=== PATIENT | male | born 1935 | race Caucasian/White ===

== ENCOUNTER → 2017-03-10 | Outpatient (CLI) | payer MEDICARE, OTHER, SELFPAY | PROVIDERS: Visit Provider Family Medicine | DX: M86.172 Other acute osteomyelitis, left ankle and foot (principal); Z89.422 Acquired absence of other left toe(s); Z51.81 Encounter for therapeutic drug level monitoring | CPT/HCPCS: 80202 ==

== ENCOUNTER → 2017-03-11 | Outpatient (CLI) | payer MEDICARE, OTHER, SELFPAY | PROVIDERS: Visit Provider Family Medicine | DX: M86.172 Other acute osteomyelitis, left ankle and foot (principal); Z89.422 Acquired absence of other left toe(s); Z51.81 Encounter for therapeutic drug level monitoring | CPT/HCPCS: 80202 ==

== ENCOUNTER → 2017-03-14 | Outpatient (CLI) | payer MEDICARE, OTHER, SELFPAY | PROVIDERS: Visit Provider Family Medicine | DX: M86.172 Other acute osteomyelitis, left ankle and foot (principal); Z89.422 Acquired absence of other left toe(s); Z51.81 Encounter for therapeutic drug level monitoring | CPT/HCPCS: 80202 ==

== ENCOUNTER → 2017-03-19 | Outpatient (CLI) | payer MEDICARE, OTHER, SELFPAY | PROVIDERS: PCP Family Medicine; Visit Provider Family Medicine | DX: M86.172 Other acute osteomyelitis, left ankle and foot (principal); Z89.422 Acquired absence of other left toe(s); Z51.81 Encounter for therapeutic drug level monitoring | CPT/HCPCS: 80048; 80202 ==

== ENCOUNTER → 2017-03-20 | Outpatient (CLI) | payer MEDICARE, OTHER, SELFPAY | PROVIDERS: PCP Family Medicine; Visit Provider Family Medicine | DX: M86.172 Other acute osteomyelitis, left ankle and foot (principal); Z89.422 Acquired absence of other left toe(s); Z51.81 Encounter for therapeutic drug level monitoring | CPT/HCPCS: 80202 ==

== ENCOUNTER → 2017-03-23 | Outpatient (CLI) | payer MEDICARE, OTHER, SELFPAY | PROVIDERS: PCP Family Medicine; Visit Provider Family Medicine | DX: M86.172 Other acute osteomyelitis, left ankle and foot (principal); Z89.422 Acquired absence of other left toe(s); Z51.81 Encounter for therapeutic drug level monitoring | CPT/HCPCS: 80202 ==

== ENCOUNTER 2017-03-29 11:26 | Outpatient (POV) | payer MEDICARE, OTHER, SELFPAY | END 2017-03-29 15:20 | disposition home or self-care (01) | PROVIDERS: PCP Podiatrist; Visit Provider Podiatrist | DX: Z98.890 Other specified postprocedural states (principal) | CPT/HCPCS: 99024 ==

== ENCOUNTER 2017-04-14 13:19 | Outpatient (POV) | payer MEDICARE, OTHER, SELFPAY | END 2017-04-14 16:49 | disposition home or self-care (01) | PROVIDERS: Visit Provider Podiatrist | DX: Z98.890 Other specified postprocedural states (principal) | CPT/HCPCS: 99024 ==

== ENCOUNTER → 2017-05-25 13:20 | Outpatient (CLI) | payer MEDICARE, OTHER, MEDICAID, SELFPAY ==
--- NOTE | 2017-05-25 | XR_ITS ---
XR foot RT min 3V HISTORY: 8 pain, diabetic ORDERING PHYSICIAN: Estella Alonso DPM PATIENT AGE: 82 years COMPARISON: None FINDINGS: There is extensive bandage artifact obscuring fine detail of the third, fourth, and fifth toes. Flexion deformity involves the fourth through fifth toes. There is some deformity involving the proximal phalanx of the toe and could be related to old fracture. No obvious bony lytic changes however, subtle erosive changes may not be seen due to the artifact. IMPRESSION: Hammertoe deformity fourth through fifth toes with bandage artifact.
--- NOTE | 2017-05-25 | XR_ITS ---
XR foot LT min 3V HISTORY: Foot pain, follow-up amputation ORDERING PHYSICIAN: Estella Alonso DPM PATIENT AGE: 82 years COMPARISON: 03/03/2017 FINDINGS: Status post transmetatarsal amputation at the base of the metatarsals not significant change compared to the previous study. No underlying erosive process evident. There is overlying bandage artifact. IMPRESSION: No change status post proximal metatarsal amputation
== END ==
PROVIDERS: PCP Family Medicine; Visit Provider Podiatrist
DX: E11.621 Type 2 diabetes mellitus with foot ulcer (principal)
CPT/HCPCS: 73630; 87070; 87077; 87186; 87205

== ENCOUNTER 2017-05-30 10:58 | Inpatient (IN) | payer MEDICARE, OTHER, MEDICAID, SELFPAY ==
[2017-05-30 11:02] VITALS: BP 123/67; PULSE 77; RESP 18; TEMP 36.7; O2SAT 95; BMI 21.5
--- NOTE | 2017-05-30 11:22 | HMH.EDWNDL ---
ED Disposition Clinical Impression: Cellulitis of foot, right, Gangrene associated with type 2 diabetes mellitus Disposition: Admitted As Inpatient Condition on Discharge: Good Instructions: DI for Laceration Repair Referrals: Lopez Goss MD [Primary Care Provider] - - Critical Care Critical Care Time: No Attestation: On , the high probability of a clinically significant, sudden or life threatening deterioration of the following system(s) required my full and direct attention, intervention and personal management. The time I documented below is in addition to time spent performing reported procedures but includes the following listed in this critical care notation. Medical Decision Making - Medical Records Medical records reviewed: Yes: I reviewed the patient's medical records. Vital Signs: 05/30/17 11:02 05/30/17 12:18 05/30/17 13:14 Temperature 98.1 F Temperature Source Temporal Artery Scan Pulse Rate [Left Brachial] 77 74 74 Respiratory Rate 18 18 18 Blood Pressure [Left Arm] 123/67 124/63 127/58 Blood Pressure Mean [Left Arm] 85 83 81 Blood Pressure Source [Left Arm] Automatic Cuff Automatic Cuff Automatic Cuff Blood Pressure Position [Left Arm] Supine Supine Sitting 02 Sat by Pulse Oximetry 95 98 97 Oxygen Delivery Method Room Air Room Air Room Air - Lab Data Lab results reviewed: Yes: I reviewed the patient's lab results. Lab Results 05/30/17 11:15: WBC 15.2 H, RBC 4.04 L, Hgb 11.7 L, Hct 37.6 L, MCV 93.1, MCH 29.0, MCHC 31.1 L, RDW 13.5, Plt Count 614 H, MPV 7.6, Neut % (Auto) 79.8, Lymph % (Auto) 11.2, [place] % (Auto) 3.6, Eos % (Auto) 4.9, Baso % (Auto) 0.5, Neut # (Auto) 12.1 H, Lymph # (Auto) 1.7, [place] # (Auto) 0.5, Eos # (Auto) 0.8 H, Baso # (Auto) 0.1, Total Counted 100, Neutrophils % (Manual) 77 H, Lymphocytes % (Manual) 11, Monocytes % (Manual) 7, Eosinophils % (Manual) 5 H, Platelet Estimate Marked increase, RBC Morphology Normal 05/30/17 11:15: Sodium 143, Potassium 4.9, Chloride 106, Carbon Dioxide 29, Anion Gap 12.9, BUN 24 H, Creatinine 1.11, Estimated Creat Clear 50, Estimated GFR 64, Est GFR ( Amer) 77, Glucose 207 H, Calcium 9.2, Total Bilirubin 0.2, AST 25, ALT 26, Alkaline Phosphatase 133 H, Total Protein 7.6, Albumin 2.5 L, Globulin 5.1 H, Albumin/Globulin Ratio 0.5 L 05/30/17 11:15: Lactic Acid 1.2 Result diagrams: 05/30/17 11:15 05/30/17 11:15 Orders (Tests/Meds): ED MEDICATIONS Generic Name Dose Route Start Last Admin Trade Name Freq PRN Reason Stop Dose Admin Vancomycin HCl 1,250 mg/ 250 mls @ 125 mls/hr 05/30/17 13:15 Sodium Chloride IV 05/30/17 15:14 ONCE ONE Miscellaneous 1 each 05/30/17 13:15 Vancomycin Consult Request NOTAPPLIC 06/29/17 13:14 CONSULT PHARMACY СВЕТЛАНА ORDERS Category Date Time Status CXR --portable [XR chest portable] Stat Exams 05/30/17 11:51 Taken Blood Culture Stat Micro 05/30/17 11:15 Received - Physician Consults Physician Consulted: pedro Reason -: Admission Additional Consult: treasure Reason -: Pt condition Additional Consult: karissa Reason -: Pt condition - Phill Inquiry Pt receiving controlled substance: No Wound/Laceration HPI - General Chief Complaint: Wound/Laceration Stated Complaint: INFECTION Time Seen by Provider: 05/30/17 11:22 Mode of Arrival: EMS Source of Information: Patient, EMS, Medical Record Limitations: No Limitations Description of Symptoms (Recalled from ER Triage Doc. by RN): PT HAS RIGHT FOOT POSSIBLE INFECTION. PER RN AT CARE HOME PT'S RIGHT GREAT TOE AND PINKY TOE ARE BLACK AND DRAINING WHITE DRAINAGE. FOLLOWING PATIENT AND STARTED PATIENT ON INVANZ ON 05/28/17. - History of Present Illness HPI narrative: pt with diabetes and has infected rt foot - has been seen by dr amanda and on op abx iv Onset (ago): day(s) Extremity Location: Right: foot Context: other Treatments prior to arrival: other (iv abx) - Related Data Home
--- NOTE | 2017-05-30 11:25 | ED_ITS ---
ED Disposition Clinical Impression: Cellulitis of foot, right, Gangrene associated with type 2 diabetes mellitus Disposition: Admitted As Inpatient Condition on Discharge: Good Instructions: DI for Laceration Repair Referrals: Lopez Goss MD [Primary Care Provider] - - Critical Care Critical Care Time: No Attestation: On , the high probability of a clinically significant, sudden or life threatening deterioration of the following system(s) required my full and direct attention, intervention and personal management. The time I documented below is in addition to time spent performing reported procedures but includes the following listed in this critical care notation. Medical Decision Making - Medical Records Medical records reviewed: Yes: I reviewed the patient's medical records. Vital Signs: 05/30/17 11:02 05/30/17 12:18 05/30/17 13:14 Temperature 98.1 F Temperature Source Temporal Artery Scan Pulse Rate [Left Brachial] 77 74 74 Respiratory Rate 18 18 18 Blood Pressure [Left Arm] 123/67 124/63 127/58 Blood Pressure Mean [Left Arm] 85 83 81 Blood Pressure Source [Left Arm] Automatic Cuff Automatic Cuff Automatic Cuff Blood Pressure Position [Left Arm] Supine Supine Sitting 02 Sat by Pulse Oximetry 95 98 97 Oxygen Delivery Method Room Air Room Air Room Air - Lab Data Lab results reviewed: Yes: I reviewed the patient's lab results. Lab Results 05/30/17 11:15: WBC 15.2 H, RBC 4.04 L, Hgb 11.7 L, Hct 37.6 L, MCV 93.1, MCH 29.0, MCHC 31.1 L, RDW 13.5, Plt Count 614 H, MPV 7.6, Neut % (Auto) 79.8, Lymph % (Auto) 11.2, [place] % (Auto) 3.6, Eos % (Auto) 4.9, Baso % (Auto) 0.5, Neut # (Auto) 12.1 H, Lymph # (Auto) 1.7, [place] # (Auto) 0.5, Eos # (Auto) 0.8 H , Baso # (Auto) 0.1, Total Counted 100, Neutrophils % (Manual) 77 H, Lymphocytes % (Manual) 11, Monocytes % (Manual) 7, Eosinophils % (Manual) 5 H, Platelet Estimate Marked increase, RBC Morphology Normal 05/30/17 11:15: Sodium 143, Potassium 4.9, Chloride 106, Carbon Dioxide 29, Anion Gap 12.9, BUN 24 H, Creatinine 1.11, Estimated Creat Clear 50, Estimated GFR 64, Est GFR ( Amer) 77, Glucose 207 H, Calcium 9.2, Total Bilirubin 0.2, AST 25, ALT 26, Alkaline Phosphatase 133 H, Total Protein 7.6, Albumin 2.5 L, Globulin 5.1 H, Albumin/Globulin Ratio 0.5 L 05/30/17 11:15: Lactic Acid 1.2 Result diagrams: 05/30/17 11:15 05/30/17 11:15 Orders (Tests/Meds): ED MEDICATIONS Generic Name Dose Route Start Last Admin Trade Name Freq PRN Reason Stop Dose Admin Vancomycin HCl 1,250 mg/ 250 mls @ 125 mls/hr 05/30/17 13:15 Sodium Chloride IV 05/30/17 15:14 ONCE ONE Miscellaneous 1 each 05/30/17 13:15 Vancomycin Consult Request NOTAPPLIC 06/29/17 13:14 CONSULT PHARMACY СВЕТЛАНА ORDERS Category Date Time Status CXR --portable [XR chest portable] Stat Exams 05/30/17 11:51 Taken Blood Culture Stat Micro 05/30/17 11:15 Received - Physician Consults Physician Consulted: pedro Reason -: Admission Additional Consult: treasure Reason -: Pt condition Additional Consult: karissa Reason -: Pt condition - Phill Inquiry Pt receiving controlled substance: No Wound/Laceration HPI - General Chief Complaint: Wound/Laceration Stated Complaint: INFECTION Time Seen by Provider: 05/30/17 11:22 Mode of Arrival: EMS Source of [employer]
[2017-05-30 11:37] LABS: Basophils # 0.1 K/mm3 (0-0.2); Basophils % 0.5 % (0.1-2.0); Eosinophils # 0.8 K/mm3 (0.0-0.4); Eosinophils % 4.9 % (0.1-12.0); Hematocrit 37.6 % (42.0-52.0); Hemoglobin 11.7 g/dL (14.1-18.0); Lymphocytes # 1.7 K/mm3 (0.7-4.5); Lymphocytes % 11.2 K/mm3 (10-50); Mean Corpuscular HGB Conc 31.1 g/dL (31.8-35.4); Mean Corpuscular Volume 93.1 fl (80-94); Mean Platelet Volume 7.6 fl (7.4-10.4); Monocytes # 0.5 K/mm3 (0.1-1.0); Monocytes % 3.6 % (1.7-9.3); Neutrophils # 12.1 K/mm3 (1.8-7.8); Neutrophils % 79.8 % (37.0-80.0); Platelet Count 614 K/mm3 (142-424); Red Blood Count 4.04 M/mm3 (4.60-6.20); Red Cell Distribution Width 13.5 % (11.5-17.5); White Blood Count 15.2 K/mm3 (4.8-10.8)
[2017-05-30 11:40] LABS: MANUAL DIFFERENTIAL MANUAL DIFFERENTIAL (MANUAL DIFF)
[2017-05-30 11:50] LABS: Alanine Aminotransferase 26 U/L (12-78); Albumin Level 2.5 gm/dL (3.4-5.0); Albumin/Globulin Ratio 0.5 (1.1-1.8); Alkaline Phosphatase 133 U/L (46-116); Anion Gap 12.9 mEq/L (5-15); Bilirubin,Total 0.2 mg/dL (0.2-1.0); Blood Urea Nitrogen 24 mg/dL (7-18); Calcium 9.2 mg/dL (8.5-10.1); Carbon Dioxide 29 mmol/L (21.0-32.0); Chloride 106 mmol/L (98-107); Creatinine Clearance Estimated 50 mL/min (0-300); Creatinine,Serum 1.11 mg/dL (0.70-1.30); Estimated Glomerular Filt Rate 64 ml/min (>60); GFR (African American) 77 ML/MIN (>60); Globulin 5.1 gm/dl (1.3-3.2); Glucose 207 mg/dL (74-106); Sodium 143 mmol/L (136-145); Total Protein,Serum 7.6 gm/dL (6.4-8.2)
--- NOTE | 2017-05-30 11:51 | XR_ITS ---
XR chest portable Ordering Physician: Alexi Calhoun MD Patient Age: 82 years: Male HISTORY: ITS.REASON: sob TECHNIQUE: AP portable upright chest COMPARISON :03/07/2017 FINDINGS . There is better inspiration today at the lung bases are better expanded and clear than on the previous portable chest film. Nothing definitely acute evident. Minimal density at the left CP angle has improved since previous studies from March 2017. The heart, walter and mediastinal structures satisfactory. Calcified aortic knob. Degenerative AC joint changes bilateral. IMPRESSION: Nothing definitely acute
[2017-05-30 11:52] LABS: Aspartate Amino Transferase 25 U/L (15-37); Lactic Acid 1.2 mmol/L (0.4-2.0); Potassium 4.9 mmoL/L (3.5-5.1)
--- NOTE | 2017-05-30 12:05 | PC.NURSE ---
1138- CALLED 'S OFFICE TO NOTIFY OF PATIENT ARRIVIAL TO THE ER FROM [facility].
[2017-05-30 12:18] VITALS: BP 124/63; PULSE 74; RESP 18; O2SAT 98
[2017-05-30 12:27] LABS: Eosinophils % 5 % (0-3); Lymphocytes % 11 % (10-50); Monocytes % 7 % (2-9); Neutrophils % 77 % (42-76); Platelet Estimate Marked Increase; Total Cells Counted 100
[2017-05-30 12:28] LABS: RBC Morphology Normal
--- NOTE | 2017-05-30 12:54 | HMH.ORTHOCON ---
*Admission Date: 05/30/17 *Chief complaint: Right 5th toe gangrene *History of present illness: Mr. Umanzor is a 82 y/o male who is in the ER today. He was last seen in my clinic Wedn 05/25/17 for follow up of left TMA site, wound care. Last week, he had new gangrenous changes to the right hallux, and right 5th toe with discoloration and malodor. No active drainage was appreciated. He was started on oral antibiotics however the preliminary cultures on Tuesday showed multiple drug resistance. So I changed him to Ertapenem 1g every 24. The wound culture from 05/25/17 still has not finalized but the lab did call today indicating that there are more in his organisms noted with multiple drug resistance. The right 5th toe is smells worse today and cellulitis noted. There is some pain with palpation. WBC elevated at 15.2. Patient is usually combative but he seems rather subdued today. Patient is post op left foot amputation. S/P left transmetatarsal amputation on 01/01/17. He is s/p left 4-5th ray resection, I&D, application of wound vac 12/29/16 for gas gangrene. Patient is also s/p stent LEFT SFA, popliteal by Dr. Maradiaga 12/30/16. 12/28/16: ROYER R 0.52, L 0.26 TBI R 0.28, L 0.27 Abnormal pulses and waveforms indicating severe bilateral arterial disease Review of Systems - Constitutional Reports anorexia, Denies chills, Denies fever(s) - Eyes Denies blurry vision, Denies change in vision - ENT Denies change in voice - *Cardiovascular Denies excessive sweating, Denies shortness of breath - *Respiratory Denies shortness of breath, Denies pain with cough - *Gastrointestinal Denies abdominal pain - *Genitourinary Denies genital pain - *Musculoskeletal Reports decreased muscle mass, Reports muscle weakness - *Neurologic Reports behavioral changes, Reports tingling/numbness/burning sensations, Denies seizure-like activity - Endocrine Denies excessive sweating - Hematologic/Lymphatic Denies easy bleeding [facility] History I have reviewed the patient's past medical history: Yes Medical History: Reports:: Atrial Fibrillation, Deep Vein Thrombosis, Dementia, Diabetes Mellitus Type 2, Transient Ischemic Attacks (TIA) Laterality Cases: Left: Other Other Surgeries: Yes: Other (TMA Left Foot) Amputation: Yes (01/01/17 left TMA) Fractures: No - *Social History Smoking Status: Former smoker Tobacco Type: cigarettes # Packs/Day (cigarettes): 0 #Yrs smoked (if former smoker): 20 Alcohol Intake: never Alcohol Intake Frequency:: 0-2 drinks per day Substance Use Type: denies use Occupational Status: retired Housing: detention - Psychiatric History Expresses thoughts of harming self/others: None Suicide Plan Description: No Plan *Family Hx:: Unable to obtain Meds Home Medications Medication Instructions Recorded Confirmed Type atorvastatin 40 mg tablet 40 mg PO QDAY 30 Days #30 tab 05/18/17 History clopidogrel 75 mg tablet 75 mg PO QDAY 30 Days #30 tab 05/18/17 History collagenase clostridium TOPICAL 15 Days #30 05/18/17 History histolyticum 250 unit/gram topical ointment diltiazem CD 240 mg PO 30 Days #30 05/18/17 History capsule,extended release 24 hr insulin glargine 100 unit/mL (3 SUB-Q 8 Days #3 05/18/17 History mL) subcutaneous pen insulin lispro 100 unit/mL SUB-Q 15 Days #3 05/18/17 History subcutaneous pen metoprolol succinate ER 25 mg PO 30 Days #30 05/18/17 History tablet,extended release 24 hr risperidone 1 mg tablet 1 mg PO .PRN 30 Days tab 05/18/17 History rivaroxaban 15 mg tablet 15 mg PO QDAY 30 Days #30 tab 05/18/17 History sitagliptin 50 mg-metformin ER PO 30 Days #30 05/18/17 History 1,000 mg tablet,extended release 24h mp Allergies Allergy/AdvReac Type Severity Reaction Status Date / Time No Known Drug Allergies Allergy Unknown -- Unverified 05/25/17 12:51 [NKDA] Exam Vital signs and Labs for Last 24 Hours: Temp Pulse Resp BP Pulse Ox 9
--- NOTE | 2017-05-30 13:00 | P.CONS_ITS ---
*Admission Date: 05/30/17 *Chief complaint: Right 5th toe gangrene *History of present illness: Mr. Umanzor is a 82 y/o male who is in the ER today. He was last seen in my clinic Wedn 05/25/17 for follow up of left TMA site, wound care. Last week, he had new gangrenous changes to the right hallux, and right 5th toe with discoloration and malodor. No active drainage was appreciated. He was started on oral antibiotics however the preliminary cultures on Tuesday showed multiple drug resistance. So I changed him to Ertapenem 1g every 24. The wound culture from 05/25/17 still has not finalized but the lab did call today indicating that there are more in his organisms noted with multiple drug resistance. The right 5th toe is smells worse today and cellulitis noted. There is some pain with palpation. WBC elevated at 15.2. Patient is usually combative but he seems rather subdued today. Patient is post op left foot amputation. S/P left transmetatarsal amputation on 01/01/17. He is s/p left 4-5th ray resection, I&D, application of wound vac for gas gangrene. Patient is also s/p stent LEFT SFA, popliteal by Dr. Maradiaga 12/30/16. 12/28/16: ROYER R 0.52, L 0.26 TBI R 0.28, L 0.27 Abnormal pulses and waveforms indicating severe bilateral arterial disease Review of Systems - Constitutional Reports anorexia, Denies chills, Denies fever(s) - Eyes Denies blurry vision, Denies change in vision - ENT Denies change in voice - *Cardiovascular Denies excessive sweating, Denies shortness of breath - *Respiratory Denies shortness of breath, Denies pain with cough - *Gastrointestinal Denies abdominal pain - *Genitourinary Denies genital pain - *Musculoskeletal Reports decreased muscle mass, Reports muscle weakness - *Neurologic Reports behavioral changes, Reports tingling/numbness/burning sensations, Denies seizure-like activity - Endocrine Denies excessive sweating - Hematologic/Lymphatic Denies easy bleeding [facility] History I have reviewed the patient's past medical history: Yes Medical History: Reports:: Atrial Fibrillation, Deep Vein Thrombosis, Dementia, Diabetes Mellitus Type 2, Transient Ischemic Attacks (TIA) Laterality Cases: Left: Other Other Surgeries: Yes: Other (TMA Left Foot) Amputation: Yes (01/01/17 left TMA) Fractures: No - *Social History Smoking Status: Former smoker Tobacco Type: cigarettes # Packs/Day (cigarettes): 0 #Yrs smoked (if former smoker): 20 Alcohol Intake: never Alcohol Intake Frequency:: 0-2 drinks per day Substance Use Type: denies use Occupational Status: retired Housing: intermediate - Psychiatric History Expresses thoughts of harming self/others: None Suicide Plan Description: No Plan *Family Hx:: Unable to obtain Meds Home Medications Medication Instructions Recorded Confirmed Type atorvastatin 40 mg tablet 40 mg PO QDAY 30 Days #30 tab 05/18/17 History clopidogrel 75 mg tablet 75 mg PO QDAY 30 Days #30 tab 05/18/17 History collagenase clostridium TOPICAL 15 Days #30 05/18/17 History histolyticum 250 unit/gram topical ointment diltiazem CD 240 mg PO 30 Days #30 05/18/17 History capsule,extended release 24 hr insulin glargine 100 unit/mL (3 SUB-Q 8 Days #3 05/18/17 History mL) subcutaneous pen insulin lispro 100 unit/mL SUB-Q 15 Days #3 05/18/17 History subcutaneous pen metoprolol succinate ER 25 mg PO 30 Days #30 05/18/17 History tablet,extended release 24 hr risp
[2017-05-30 13:14] VITALS: BP 127/58; PULSE 74; RESP 18; O2SAT 97
--- NOTE | 2017-05-30 14:01 | HMH.CARDCON2 ---
History of Present Illness Consult date: 05/30/17 Requesting physician: Estella Alonso Chief complaint: Non-healing ulcer of right foot History of present illness: 82-year-old white male with previous peripheral arterial disease of the left leg status post percutaneous intervention in 2017 with resultant improvement in nonhealing ulcer of the left foot is being readmitted today for nonhealing ulcer of the right foot with cardiology consultation for evaluation of PAD of the right leg. Patient has a history of long-term, heavy smoking use discontinued last year, long-term diabetes and dementia. History obtained from family member. Review of Systems - *Cardiovascular Denies chest pain - *Neurologic Reports behavioral changes, Reports tingling/numbness/burning sensations, Denies seizure-like activity [facility] History Medical History: Reports:: Atrial Fibrillation, Deep Vein Thrombosis, Dementia, Diabetes Mellitus Type 2, Transient Ischemic Attacks (TIA) Laterality Cases: Left: Other Other Surgeries: Yes: Other (TMA Left Foot) Amputation: Yes Fractures: No - *Social History Smoking Status: Never smoker Tobacco Type: cigarettes # Packs/Day (cigarettes): 0 #Yrs smoked (if former smoker): 20 Alcohol Intake: never Alcohol Intake Frequency:: 0-2 drinks per day Substance Use Type: denies use Occupational Status: retired Housing: skilled nursing - Psychiatric History Expresses thoughts of harming self/others: None Suicide Plan Description: No Plan *Family Hx:: Unable to obtain [facility] Home Medications Medication Instructions Recorded Confirmed Type atorvastatin 40 mg tablet 40 mg PO QDAY 30 Days #30 tab 05/18/17 History clopidogrel 75 mg tablet 75 mg PO QDAY 30 Days #30 tab 05/18/17 History collagenase clostridium TOPICAL 15 Days #30 05/18/17 History histolyticum 250 unit/gram topical ointment diltiazem CD 240 mg PO 30 Days #30 05/18/17 History capsule,extended release 24 hr insulin glargine 100 unit/mL (3 SUB-Q 8 Days #3 05/18/17 History mL) subcutaneous pen insulin lispro 100 unit/mL SUB-Q 15 Days #3 05/18/17 History subcutaneous pen metoprolol succinate ER 25 mg PO 30 Days #30 05/18/17 History tablet,extended release 24 hr risperidone 1 mg tablet 1 mg PO .PRN 30 Days tab 05/18/17 History rivaroxaban 15 mg tablet 15 mg PO QDAY 30 Days #30 tab 05/18/17 History sitagliptin 50 mg-metformin ER PO 30 Days #30 05/18/17 History 1,000 mg tablet,extended release 24h mp Allergies Allergy/AdvReac Type Severity Reaction Status Date / Time No Known Drug Allergies Allergy Unknown -- Unverified 05/25/17 12:51 [NKDA] Exam Vital signs and Labs for Last 24 Hours: Temp Pulse Resp BP Pulse Ox 98.1 F 74 18 127/58 97 05/30/17 11:02 05/30/17 13:14 05/30/17 13:14 05/30/17 13:14 05/30/17 13:14 Laboratory Results - last 24 hr 05/30/17 11:15: WBC 15.2 H, RBC 4.04 L, Hgb 11.7 L, Hct 37.6 L, MCV 93.1, MCH 29.0, MCHC 31.1 L, RDW 13.5, Plt Count 614 H, MPV 7.6, Neut % (Auto) 79.8, Lymph % (Auto) 11.2, [place] % (Auto) 3.6, Eos % (Auto) 4.9, Baso % (Auto) 0.5, Neut # (Auto) 12.1 H, Lymph # (Auto) 1.7, [place] # (Auto) 0.5, Eos # (Auto) 0.8 H, Baso # (Auto) 0.1, Total Counted 100, Neutrophils % (Manual) 77 H, Lymphocytes % (Manual) 11, Monocytes % (Manual) 7, Eosinophils % (Manual) 5 H, Platelet Estimate Marked increase, RBC Morphology Normal 05/30/17 11:15: Sodium 143, Potassium 4.9, Chloride 106, Carbon Dioxide 29, Anion Gap 12.9, BUN 24 H, Creatinine 1.11, Estimated Creat Clear 50, Estimated GFR 64, Est GFR ( Amer) 77, Glucose 207 H, Calcium 9.2, Total Bilirubin 0.2, AST 25, ALT 26, Alkaline Phosphatase 133 H, Total Protein 7.6, Albumin 2.5 L, Globulin 5.1 H, Albumin/Globulin Ratio 0.5 L 05/30/17 11:15: Lactic Acid 1.2 I & O for Last 24 hours: Intake & Output 05/28/17 05/29/17 05/30/17 05/31/17 11:59 11:59 11:59 11:59 Weight 150 lb - *Routine Neck Exam Absent:
--- NOTE | 2017-05-30 14:04 | P.CONS_ITS ---
History of Present Illness Consult date: 05/30/17 Requesting physician: Estella Alonso Chief complaint: Non-healing ulcer of right foot History of present illness: 82-year-old white male with previous peripheral arterial disease of the left leg status post percutaneous intervention in 2017 with resultant improvement in nonhealing ulcer of the left foot is being readmitted today for nonhealing ulcer of the right foot with cardiology consultation for evaluation of PAD of the right leg. Patient has a history of long-term, heavy smoking use discontinued last year, long-term diabetes and dementia. History obtained from family member. Review of Systems - *Cardiovascular Denies chest pain - *Neurologic Reports behavioral changes, Reports tingling/numbness/burning sensations, Denies seizure-like activity [facility] History Medical History: Reports:: Atrial Fibrillation, Deep Vein Thrombosis, Dementia, Diabetes Mellitus Type 2, Transient Ischemic Attacks (TIA) Laterality Cases: Left: Other Other Surgeries: Yes: Other (TMA Left Foot) Amputation: Yes Fractures: No - *Social History Smoking Status: Never smoker Tobacco Type: cigarettes # Packs/Day (cigarettes): 0 #Yrs smoked (if former smoker): 20 Alcohol Intake: never Alcohol Intake Frequency:: 0-2 drinks per day Substance Use Type: denies use Occupational Status: retired Housing: senior living - Psychiatric History Expresses thoughts of harming self/others: None Suicide Plan Description: No Plan *Family Hx:: Unable to obtain [facility] Home Medications Medication Instructions Recorded Confirmed Type atorvastatin 40 mg tablet 40 mg PO QDAY 30 Days #30 tab 05/18/17 History clopidogrel 75 mg tablet 75 mg PO QDAY 30 Days #30 tab 05/18/17 History collagenase clostridium TOPICAL 15 Days #30 05/18/17 History histolyticum 250 unit/gram topical ointment diltiazem CD 240 mg PO 30 Days #30 05/18/17 History capsule,extended release 24 hr insulin glargine 100 unit/mL (3 SUB-Q 8 Days #3 05/18/17 History mL) subcutaneous pen insulin lispro 100 unit/mL SUB-Q 15 Days #3 05/18/17 History subcutaneous pen metoprolol succinate ER 25 mg PO 30 Days #30 05/18/17 History tablet,extended release 24 hr risperidone 1 mg tablet 1 mg PO .PRN 30 Days tab 05/18/17 History rivaroxaban 15 mg tablet 15 mg PO QDAY 30 Days #30 tab 05/18/17 History sitagliptin 50 mg-metformin ER PO 30 Days #30 05/18/17 History 1,000 mg tablet,extended release 24h mp Allergies Allergy/AdvReac Type Severity Reaction Status Date / Time No Known Drug Allergies Allergy Unknown -- Unverified 05/25/17 12:51 [NKDA] Exam Vital signs and Labs for Last 24 Hours: Temp Pulse Resp BP Pulse Ox 98.1 F 74 18 127/58 97 05/30/17 11:02 05/30/17 13:14 05/30/17 13:14 05/30/17 13:14 05/30/17 13:14 Laboratory Results - last 24 hr 05/30/17 11:15: WBC 15.2 H, RBC 4.04 L, Hgb 11.7 L, Hct 37.6 L, MCV 93.1, MCH 29.0, MCHC 31.1 L, RDW 13.5, Plt Count 614 H, MPV 7.6, Neut % (Auto) 79.8, Lymph % (Auto) 11.2, [place] % (Auto) 3.6, Eos % (Auto) 4.9, Baso % (Auto) 0.5, Neut # (Auto) 12.1 H, Lymph # (Auto) 1.7, [place] # (Auto) 0.5, Eos # (Auto) 0.8 H , Baso # (Auto) 0.1, Total Counted 100, Neutrophils % (Manual) 77 H, Lymphocytes % (Manual) 11, Monocytes % (Manual) 7, Eosinophils % (Manual) 5 H, Platelet Estimate Marked increase, RBC Mo
--- NOTE | 2017-05-30 15:39 | P.CONPHA_ITS ---
- Pharmacy Consult Date: 05/30/17 Time: 15:37 Referring provider: DR. AMAYA Reason for Consult:: VANCOMYCIN DOSING Allergies and ADEs:: Allergies Allergy/AdvReac Type Severity Reaction Status Date / Time No Known Drug Allergies Allergy Unknown -- Unverified 05/25/17 12:51 [NKDA] Home Medications:: Home Medications Medication Instructions Recorded Confirmed Type atorvastatin 40 mg tablet 40 mg PO QDAY 30 Days #30 tab 05/18/17 History clopidogrel 75 mg tablet 75 mg PO QDAY 30 Days #30 tab 05/18/17 History collagenase clostridium TOPICAL 15 Days #30 05/18/17 History histolyticum 250 unit/gram topical ointment diltiazem CD 240 mg PO 30 Days #30 05/18/17 History capsule,extended release 24 hr insulin glargine 100 unit/mL (3 SUB-Q 8 Days #3 05/18/17 History mL) subcutaneous pen insulin lispro 100 unit/mL SUB-Q 15 Days #3 05/18/17 History subcutaneous pen metoprolol succinate ER 25 mg PO 30 Days #30 05/18/17 History tablet,extended release 24 hr risperidone 1 mg tablet 1 mg PO .PRN 30 Days tab 05/18/17 History rivaroxaban 15 mg tablet 15 mg PO QDAY 30 Days #30 tab 05/18/17 History sitagliptin 50 mg-metformin ER PO 30 Days #30 05/18/17 History 1,000 mg tablet,extended release 24h mp Height: 1.78 m Weight: 68.039 kg Laboratory Results:: SRCR=1.11 Medical History: Reports:: Atrial Fibrillation, Deep Vein Thrombosis, Dementia, Diabetes Mellitus Type 2, Transient Ischemic Attacks (TIA) 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 layer exposed Start date: 01/31/17 Start time: 08:00 Current visit: Yes Status: Chronic Category: Medical Code(s): L97.522 - Non-pressure chronic ulcer of other part of left foot with fat layer exposed (4) Peripheral arterial occlusive disease Start date: 05/30/17 Start time: 13:16 Current visit: No Status: Chronic Category: Medical Code(s): I77.9 - Disorder of arteries and arterioles, unspecified (5) Ex-smoker Current visit: Yes Status: Acute Category: Social Hx Code(s): Z87.891 - Personal history of nicotine dependence (6) Atrial fibrillation Current visit: No Status: Acute Category: Medical Code(s): I48.91 - Unspecified atrial fibrillation (7) Coronary arteriosclerosis Current visit: No Status: Acute Category: Medical Code(s): I25.10 - Atherosclerotic heart disease of [place] coronary artery without angina pectoris - Assessment and plan all Dx Assessment and Plan for all problems:: BASED ON PATIENT FACTORS, RECOMMEND VANCOMYCIN 1250 MG IV ONCE, FOLLOWED BY VANCOMYCIN 1000 MG IV Q18H. PHARMACY WILL FOLLOW DAILY AND ADJUST APPROPRIATE.
[2017-05-30 16:23] VITALS: BMI 22.3
[2017-05-30 16:24] VITALS: BP 122/54; PULSE 81; RESP 20; TEMP 36.8; O2SAT 98
--- NOTE | 2017-05-30 16:58 | HMH.HP ---
*Admission Date: 05/30/17 *Chief complaint: gangrene of toe *History of present illness: Mr. Umanzor is a 82 y/o male who is in the ER today. He was last seen in my clinic Wedn 05/25/17 for follow up of left TMA site, wound care. Last week, he had new gangrenous changes to the right hallux, and right 5th toe with discoloration and malodor. No active drainage was appreciated. He was started on oral antibiotics however the preliminary cultures on Tuesday showed multiple drug resistance. So I changed him to Ertapenem 1g every 24. The wound culture from 05/25/17 still has not finalized but the lab did call today indicating that there are more in his organisms noted with multiple drug resistance. The right 5th toe is smells worse today and cellulitis noted. There is some pain with palpation. WBC elevated at 15.2. Patient is usually combative but he seems rather subdued today. Patient is post op left foot amputation. S/P left transmetatarsal amputation on 01/01/17. He is s/p left 4-5th ray resection, I&D, application of wound vac 12/29/16 for gas gangrene. Patient is also s/p stent LEFT SFA, popliteal by Dr. Maradiaga 12/30/16. 12/28/16: ROYER R 0.52, L 0.26 TBI R 0.28, L 0.27 Abnormal pulses and waveforms indicating severe bilateral arterial disease Patient's medical history is significant for dementia, peripheral arterial disease, diabetes that is uncontrolled. During his stay at the nursing facility over the last several months patient has had difficulty following instructions due to his dementia. He has had falls in the facility. He has ambulated on his left foot after amputation. Patient is also been combative with staff. [facility] History Medical History: Reports:: Atrial Fibrillation, Deep Vein Thrombosis, Dementia, Diabetes Mellitus Type 2, Peripheral Artery Disease, Transient Ischemic Attacks (TIA) Other Medical History: Reports: Arthritis Laterality Cases: Left: Other Other Surgeries: Yes: Other (TMA Left Foot) Amputation: Yes Fractures: No - *Social History Smoking Status: Former smoker Tobacco Type: cigarettes # Packs/Day (cigarettes): 0 #Yrs smoked (if former smoker): 20 Alcohol Intake: never Alcohol Intake Frequency:: 0-2 drinks per day Substance Use Type: denies use Occupational Status: retired Housing: [facility] Household Members: none - Psychiatric History Expresses thoughts of harming self/others: None Suicide Plan Description: No Plan *Family Hx:: Unable to obtain Review of Systems - Review of Systems Review of systems:: pertinent systems reviewed and negative unless documented below - Constitutional Denies chills, Denies fever(s) - *Cardiovascular Denies chest pain - *Respiratory Denies cough, Denies shortness of breath - *Gastrointestinal Denies abdominal pain - *Neurologic Reports behavioral changes, Reports memory loss, Reports tingling/numbness/burning sensations, Reports other, Denies seizure-like activity Comments: Dementia, behavioral disturbance - Psychiatric Reports behavioral changes, Reports confusion, Reports irritability, Reports mood swings Meds Home Medications Medication Instructions Recorded Confirmed Type atorvastatin 40 mg tablet 40 mg PO QDAY 30 Days #30 tab 05/18/17 History clopidogrel 75 mg tablet 75 mg PO QDAY 30 Days #30 tab 05/18/17 History collagenase clostridium TOPICAL 15 Days #30 05/18/17 History histolyticum 250 unit/gram topical ointment diltiazem CD 240 mg PO 30 Days #30 05/18/17 History capsule,extended release 24 hr insulin glargine 100 unit/mL (3 SUB-Q 8 Days #3 05/18/17 History mL) subcutaneous pen insulin lispro 100 unit/mL SUB-Q 15 Days #3 05/18/17 History subcutaneous pen metoprolol succinate ER 25 mg PO 30 Days #30 05/18/17 History tablet,extended release 24 hr risperidone 1 mg tablet 1 mg PO .PRN 30 Days tab 05/18/17 History rivaroxaban 15 mg tablet 15 mg PO QDAY 30 Days #30 tab 05/18/17 History sitagliptin 50 mg-metfor
--- NOTE | 2017-05-30 17:01 | P.HP_ITS ---
*Admission Date: 05/30/17 *Chief complaint: gangrene of toe *History of present illness: Mr. Umanzor is a 82 y/o male who is in the ER today. He was last seen in my clinic Wedn 05/25/17 for follow up of left TMA site, wound care. Last week, he had new gangrenous changes to the right hallux, and right 5th toe with discoloration and malodor. No active drainage was appreciated. He was started on oral antibiotics however the preliminary cultures on Tuesday showed multiple drug resistance. So I changed him to Ertapenem 1g every 24. The wound culture from 05/25/17 still has not finalized but the lab did call today indicating that there are more in his organisms noted with multiple drug resistance. The right 5th toe is smells worse today and cellulitis noted. There is some pain with palpation. WBC elevated at 15.2. Patient is usually combative but he seems rather subdued today. Patient is post op left foot amputation. S/P left transmetatarsal amputation on 01/01/17. He is s/p left 4-5th ray resection, I&D, application of wound vac for gas gangrene. Patient is also s/p stent LEFT SFA, popliteal by Dr. Maradiaga 12/30/16. 12/28/16: ROYER R 0.52, L 0.26 TBI R 0.28, L 0.27 Abnormal pulses and waveforms indicating severe bilateral arterial disease Patient's medical history is significant for dementia, peripheral arterial disease, diabetes that is uncontrolled. During his stay at the nursing facility over the last several months patient has had difficulty following instructions due to his dementia. He has had falls in the facility. He has ambulated on his left foot after amputation. Patient is also been combative with staff. [facility] History Medical History: Reports:: Atrial Fibrillation, Deep Vein Thrombosis, Dementia, Diabetes Mellitus Type 2, Peripheral Artery Disease, Transient Ischemic Attacks (TIA) Other Medical History: Reports: Arthritis Laterality Cases: Left: Other Other Surgeries: Yes: Other (TMA Left Foot) Amputation: Yes Fractures: No - *Social History Smoking Status: Former smoker Tobacco Type: cigarettes # Packs/Day (cigarettes): 0 #Yrs smoked (if former smoker): 20 Alcohol Intake: never Alcohol Intake Frequency:: 0-2 drinks per day Substance Use Type: denies use Occupational Status: retired Housing: assisted Household Members: none - Psychiatric History Expresses thoughts of harming self/others: None Suicide Plan Description: No Plan *Family Hx:: Unable to obtain Review of Systems - Review of Systems Review of systems:: pertinent systems reviewed and negative unless documented below - Constitutional Denies chills, Denies fever(s) - *Cardiovascular Denies chest pain - *Respiratory Denies cough, Denies shortness of breath - *Gastrointestinal Denies abdominal pain - *Neurologic Reports behavioral changes, Reports memory loss, Reports tingling/numbness/ burning sensations, Reports other, Denies seizure-like activity Comments: Dementia, behavioral disturbance - Psychiatric Reports behavioral changes, Reports confusion, Reports irritability, Reports mood swings Meds Home Medications Medication Instructions Recorded Confirmed Type atorvastatin 40 mg tablet 40 mg PO QDAY 30 Days #30 tab 05/18/17 History clopidogrel 75 mg tablet 75 mg PO QDAY 30 Days #30 tab 05/18/17 History collagenase clostridium TOPICAL 15 Days #30 05/18/17 History histolyticum 250 unit/gram topical ointment diltiazem CD 240 mg PO 30 Days #30 05/18/17 History capsule,extended release 24 hr
[2017-05-30 17:28] LABS: Basophils # 0.1 K/mm3 (0-0.2); Basophils % 0.6 % (0.1-2.0); Eosinophils # 0.8 K/mm3 (0.0-0.4); Eosinophils % 5.5 % (0.1-12.0); Lymphocytes # 2.3 K/mm3 (0.7-4.5); Lymphocytes % 14.7 K/mm3 (10-50); Mean Corpuscular HGB Conc 31.3 g/dL (31.8-35.4); Mean Corpuscular Hemoglobin 29.2 pg (27.0-31.2); Mean Corpuscular Volume 93.3 fl (80-94); Mean Platelet Volume 7.6 fl (7.4-10.4); Monocytes # 0.7 K/mm3 (0.1-1.0); Monocytes % 4.4 % (1.7-9.3); Neutrophils # 11.5 K/mm3 (1.8-7.8); Neutrophils % 74.9 % (37.0-80.0); Platelet Count 621 K/mm3 (142-424); Red Blood Count 3.75 M/mm3 (4.60-6.20); Red Cell Distribution Width 13.5 % (11.5-17.5); White Blood Count 15.3 K/mm3 (4.8-10.8)
[2017-05-30 17:42] LABS: Anion Gap 11.5 mEq/L (5-15); Blood Urea Nitrogen 21 mg/dL (7-18); Carbon Dioxide 29 mmol/L (21.0-32.0); Chloride 108 mmol/L (98-107); Creatinine Clearance Estimated 51 mL/min (0-300); Creatinine,Serum 0.96 mg/dL (0.70-1.30); Estimated Glomerular Filt Rate 75 ml/min (>60); GFR (African American) 91 ML/MIN (>60); Glucose 95 mg/dL (74-106); Potassium 4.5 mmoL/L (3.5-5.1); Sodium 144 mmol/L (136-145)
[2017-05-30 18:13] LABS: Erythrocyte Sedimentation Rate > 120 mm/hr (0-20)
[2017-05-30 20:00] VITALS: BP 120/64; PULSE 86; RESP 18; TEMP 36.4; O2SAT 96
[2017-05-30 20:15] VITALS: O2SAT 96
[2017-05-31 06:45] LABS: POC Glucose,Bedside 95 mg/dL
--- NOTE | 2017-05-31 07:08 | HMH.ACPN2 ---
Internal Medicine - PN: Subj *Date: 05/31/17 *Time: 07:08 Interval history: Nursing staff reports patient was awake to the night, occasionally yelling out overnight, and was combative with fingersticks. Exam Vital signs and Labs for Last 24 Hours: Temp Pulse Resp BP Pulse Ox 97.6 F 86 18 120/64 96 05/30/17 20:00 05/30/17 20:00 05/30/17 20:00 05/30/17 20:00 05/30/17 20:15 Laboratory Results - last 24 hr 05/30/17 16:45: WBC 15.3 H, RBC 3.75 L, Hgb 11.0 L, Hct 35.0 L, MCV 93.3, MCH 29.2, MCHC 31.3 L, RDW 13.5, Plt Count 621 H, MPV 7.6, Neut % (Auto) 74.9, Lymph % (Auto) 14.7, [place] % (Auto) 4.4, Eos % (Auto) 5.5, Baso % (Auto) 0.6, Neut # (Auto) 11.5 H, Lymph # (Auto) 2.3, [place] # (Auto) 0.7, Eos # (Auto) 0.8 H, Baso # (Auto) 0.1 05/30/17 16:45: ESR > 120 H 05/30/17 16:46: Sodium 144, Potassium 4.5, Chloride 108 H, Carbon Dioxide 29, Anion Gap 11.5, BUN 21 H, Creatinine 0.96, Estimated Creat Clear 51, Estimated GFR 75, Est GFR ( Amer) 91, Glucose 95 D 05/30/17 20:25: POC Glucose 95 I & O for Last 24 hours: Intake & Output 05/28/17 05/29/17 05/30/17 05/31/17 11:59 11:59 11:59 11:59 Intake Total 300 / 300 Output Total 350 / 350 Balance -50 / -50 Weight 138 lb 7 oz Narrative: He is sleeping but awakens easily. He is oriented to person. Lungs remain clear. Heart rate is irregular. Dressings are intact on both feet Sed rate is elevated at greater than 120. 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 layer exposed Start date: 01/31/17 Start time: 08:00 Current visit: Yes Status: Chronic Category: Medical Code(s): L97.522 - Non-pressure chronic ulcer of other part of left foot with fat layer exposed (4) Peripheral arterial occlusive disease Start date: 05/30/17 Start time: 13:16 Current visit: No Status: Chronic Category: Medical Code(s): I77.9 - Disorder of arteries and arterioles, unspecified (5) Ex-smoker Current visit: Yes Status: Acute Category: Social Hx Code(s): Z87.891 - Personal history of nicotine dependence (6) Atrial fibrillation Current visit: No Status: Acute Category: Medical Code(s): I48.91 - Unspecified atrial fibrillation (7) Coronary arteriosclerosis Current visit: No Status: Acute Category: Medical Code(s): I25.10 - Atherosclerotic heart disease of [place] coronary artery without angina pectoris - Assessment and plan all Dx Assessment and Plan for all problems:: MRI has been ordered. Patient's sed rate would suggest osteomyelitis is present. Continue vancomycin and Invanz. Appreciate cardiology input on this matter. Patient is scheduled for peripheral angiogram tomorrow
--- NOTE | 2017-05-31 07:29 | SW/DCPLANNER ---
MADE CONTACT WITH [facility] THIS MORNING ON THE PATIENT LISTED ABOVE AND ASKED IF HE IS ON A BEDHOLD...RIP STATED MR [facility] HAS MEDICAID AND IS ON A 14 DAY BEDHOLD AND WOULD BE RETURNING BACK THERE...DR MARIE WAS INFORMED, CM WILL FOLLOW THIS PATIENT AND ASSIST WITH ANY NEEDS HE MAY HAVE...
--- NOTE | 2017-05-31 07:32 | SW/DCPLANNER ---
MADE CONTACT WITH [facility] THIS MORNING AND SPOKE WITH RENETTA AND SHE STATED MR CH[facility]TERJEE IS ON A MEDICAID BEDHOLD AND WILL BE RETURNING BACK THERE POST HOSPITAL STAY. I SHARED THIS WITH DR AMAYA, DISPOSITION UNCERTAIN...CM WILL FOLLOW..
--- NOTE | 2017-05-31 07:37 | PC.NURSE ---
patient refused vitals on 4 O/CLOCK ROUNDIND . NURSE AWARE
[2017-05-31 07:46] LABS: Appearance,Urine CLEAR (Clear); Bilirubin,Urine Negative (Negative); Blood, Urine Negative (Negative); Color,Urine YELLOW (Yellow); Glucose,Urine (UA) Negative (Negative); Ketones,Urine Negative (Negative); Leukocyte Esterase,Urine Negative (Negative); Microscopic, Urine URINE MICROSCOPIC (MICROSCOPIC); Nitrate,Urine Negative (Negative); Protein,Urine Negative (Negative); Specific Gravity, Urine <= 1.005 (1.005-1.030); Urobilinogen,Urine 0.2 EU/dl (0.2)
[2017-05-31 07:58] LABS: WBC,Urine Occasional #/hpf (0-3)
--- NOTE | 2017-05-31 08:11 | HMH.ORTHPN ---
Subjective Date: 05/31/17 Time: 07:50 Principal diagnosis: Right 5th toe gangrene, cellulitis Interval history: Patient is combative and yelling this morning. WBC elevated at 15.3. Patient c/o pain to right foot with dressing change. Mr. Umanzor is a 82 y/o male who was admitted yesterday for worsening right foot infection. He was last seen in my clinic Wedn 05/25/17 for follow up of left TMA site, wound care. Last week, he had new gangrenous changes to the right hallux, and right 5th toe with discoloration and malodor. No active drainage was appreciated. He was started on oral antibiotics however the preliminary cultures on Tuesday showed multiple drug resistance. Patient is post op left foot amputation. S/P left transmetatarsal amputation on 01/01/17. He is s/p left 4-5th ray resection, I&D, application of wound vac 12/29/16 for gas gangrene. Patient is also s/p stent LEFT SFA, popliteal by Dr. Maradiaga 12/30/16. 12/28/16: ROYER R 0.52, L 0.26 TBI R 0.28, L 0.27 Abnormal pulses and waveforms indicating severe bilateral arterial disease PN: Obj Ex Vital signs: Temp Pulse Resp BP Pulse Ox 97.6 F 86 18 120/64 96 05/30/17 20:00 05/30/17 20:00 05/30/17 20:00 05/30/17 20:00 05/30/17 20:15 - Constitutional no acute distress, thin, combative, agitated - Routine HEENT Exam Head: Present: normocephalic - Routine Cardiovascular Exam Present: irregularly irregular - Routine Abdominal Exam Absent: guarding - Routine Extremities Exam Present: cyanosis (right digits), amputation (left TMA). Absent: edema, pulses intact, normal capillary refill - Detailed Lower Extremity Exam Foot/Toes: Left amputation (TMA), Right erythema (5th toe), Bilateral tenderness, Bilateral wound, Bilateral pain with active ROM, Bilateral pain with passive ROM Comments: LEFT FOOT: The skin is not dusky. No active purulence. The left TMA site wound secondary to dehiscence has no new signs of infection. No eschar. The graft was intact to the medial incision but sloughed off the lateral side. There was fibrotic tissue noted laterally. No ascending cellulitis to left foot. The left TMA wound has healed medially. 05/25/17 measurements: There is a narrow wound along distal flap edge measuring 1.4 x 2.7 cm. The remaining lateral incision wound is 2.5 x 4.1 x 0.4 cm deep. Today 05/31/17: medial distal flap edge is not 1.2 x 2.5cm. The lateral incision wound is now 2.5 x 1.7 cm x 0.3cm deep. RIGHT FOOT: The right 5th toe smells again today. Cellulitis noted to 5th toe. No active purulence. There is some pain with palpation. There are new changes to the right 3rd toe, dusky. Hallux has dark eschar at the toe tip. Absent posterior tibial and dorsalis pedis pulses of the feet. Cool temperature. - Routine Neurological Exam Absent: alert Progress Note: A&P (1) Cellulitis of foot, right Start date: 05/31/17 Start time: 09:57 Status: Acute Assessment and plan: 1. B/l dressing changes with betadine, DSD 2. Continue IV Ertapenem and Vancomycin 3. PWB with post op shoes 4. MRI with and without contrast of the right foot to evaluate for underlying osteomyelitis-patient could not stay still 5. Patient may need surgery: right 5th toe amputation vs TMA. Patient/family understand he is high risk that if he has surgery, he may not heal (like the left side) and may require a more proximal amputation, which could result in loss of partial foot, entire foot, or below the knee. 6. Vascular: angiogram tomorrow 7. Plan for dressing change tomorrow after vascular procedure Current Visit: Yes (2) Gangrene associated with type 2 diabetes mellitus Status: Acute Current Visit: Yes (3) Chronic ulcer of left foot with fat layer exposed Start date: 01/24/17 Status: Chronic Current Visit: Yes (4) Peripheral arterial occlusive disease Status: Chronic Current Visit: No
--- NOTE | 2017-05-31 08:16 | PC.NURSE ---
ALERT TO PLACE AND PERSON BUT NOT TO TIME. PT WOULD HOLLAR FOR HELP AT TIMES AFTER BEING INSTRUCTED TO USE CALL LIGHT T/O SHIFT, SAFETY DEVICE APPLIED T/O SHIFT. PT WOULD YELL INTERMITTENTLY AND THEN BE NOTED RESTING WITH EYES CLOSED. PT WAS GIVEN PRN MEDICATIONS ADMINISTERED TO HELP AGITATION, ON REASSESSMENT OF ADMINISTERING PRN PAIN AND NAUSEA MEDICATIONS PT NOTED RESTING WITH EYES CLOSED. ON 0600 ROUND, PT NOTED COMBATIVE, UNCOOPERATIVE, IMPATIENT AND HOSTILE WITH NURSING STAFF. PT WOULD SCREAM SHUT UP. GET OUT OF HERE. LEAVE! PT REFUSED FINGER STICK, ON ATTEMPT TO OBTAIN FINGER STICK, PT HIT RN IN FACE. PT WAS INSTRUCTED TO NOT TREAT STAFF THIS WAY. PT ATTEMPTED TO HIT SRNA WELL, MITS APPLIED AT THIS TIME, PT REMOVED THEM. WAS NOTIFIED AROUND 0645 ON AM ROUNDS. BILAT FEET NOTED WITH BILAT DRESSINGS, CDI. EPISODES OF INCONTINENCE NOTED. VSS. WILL CONTINUE TO MONITOR.
[2017-05-31 08:35] VITALS: BP 107/59; PULSE 77; RESP 20; TEMP 36.2; O2SAT 93
--- NOTE | 2017-05-31 09:27 | P.CONPHA_ITS ---
[facility] Pharmacy VTE Monitoring - Patient Demographics Admission date: 05/30/17 Report Date: 05/31/17 Time: 09:27 Allergies/Adverse Reactions: Patient Allergies No Known Drug Allergies [NKDA] Allergy (Unknown, Unverified 05/25/17 12:51) -- Height: 1.68 m Weight: 62.794 kg Patient Problems: Current Active Problems Cellulitis of foot, right (Acute) Gangrene associated with type 2 diabetes mellitus (Acute) Chronic ulcer of left foot with fat layer exposed (Chronic) Ex-smoker (Acute) - VTE Risk Labs: VTE Related Lab Results Hgb 11.0 g/dL (14.1-18.0) L 05/30/17 16:45 Hct 35.0 % (42.0-52.0) L 05/30/17 16:45 Plt Count 621 K/mm3 (142-424) H 05/30/17 16:45 BUN 21 mg/dL (7-18) H 05/30/17 16:46 Creatinine 0.96 mg/dL (0.70-1.30) 05/30/17 16:46 Estimated Creat Clear 51 mL/min (0-300) 05/30/17 16:46 Was VTE Risk Assessment Performed: No VTE Score: 4 VTE Risk Level: Low Risk - Prophylaxis VTE Prophylaxis Ordered?: Yes Types of VTE Prophylaxis: Pharmacological Pharmacologic Type: Enoxaparin - VTE Diagnosis Confirmed Treatment or plan recommended: Continue Current Treatment
[2017-05-31 09:34] LABS: Anion Gap 11.4 mEq/L (5-15); Blood Urea Nitrogen 15 mg/dL (7-18); Carbon Dioxide 28 mmol/L (21.0-32.0); Chloride 109 mmol/L (98-107); Creatinine Clearance Estimated 51 mL/min (0-300); Creatinine,Serum 0.96 mg/dL (0.70-1.30); Estimated Glomerular Filt Rate 75 ml/min (>60); GFR (African American) 91 ML/MIN (>60); Glucose 110 mg/dL (74-106); Potassium 4.4 mmoL/L (3.5-5.1); Sodium 144 mmol/L (136-145)
--- NOTE | 2017-05-31 09:35 | HMH.CARDPN2 ---
Subjective PN (PG) Date: 05/31/17 Time: 09:36 Principal diagnosis: Right 5th toe gangrene, cellulitis Interval history: Pt sleeping. No complaints of chest pains per nursing. BP stable. PN Exam ([facility]) Vital signs: Temp Pulse Resp BP Pulse Ox 97.1 F L 77 20 107/59 93 L 05/31/17 08:35 05/31/17 08:35 05/31/17 08:35 05/31/17 08:35 05/31/17 08:35 - Constitutional no acute distress - Routine Respiratory Exam Present: CTA bilaterally - Routine Cardiovascular Exam Present: RRR - Routine Extremities Exam Absent: edema, pulses intact A/P Progress Note ([facility]) (1) Cellulitis of foot, right Status: Acute Current Visit: Yes (2) Gangrene associated with type 2 diabetes mellitus Status: Acute Current Visit: Yes (3) Chronic ulcer of left foot with fat layer exposed Status: Chronic Current Visit: Yes (4) Peripheral arterial occlusive disease Status: Chronic Current Visit: No (5) Ex-smoker Status: Acute Current Visit: Yes (6) Atrial fibrillation Status: Acute Assessment and plan: Holding Xarelto for angiogram tomorrow. Covering with lovenox. Current Visit: No (7) Coronary arteriosclerosis Status: Acute Current Visit: No
--- NOTE | 2017-05-31 09:39 | P.PN_ITS ---
Subjective PN (PG) Date: 05/31/17 Time: 09:36 Principal diagnosis: Right 5th toe gangrene, cellulitis Interval history: Pt sleeping. No complaints of chest pains per nursing. BP stable. PN Exam ([facility]) Vital signs: Temp Pulse Resp BP Pulse Ox 97.1 F L 77 20 107/59 93 L 05/31/17 08:35 05/31/17 08:35 05/31/17 08:35 05/31/17 08:35 05/31/17 08:35 - Constitutional no acute distress - Routine Respiratory Exam Present: CTA bilaterally - Routine Cardiovascular Exam Present: RRR - Routine Extremities Exam Absent: edema, pulses intact A/P Progress Note ([facility]) (1) Cellulitis of foot, right Status: Acute Current Visit: Yes (2) Gangrene associated with type 2 diabetes mellitus Status: Acute Current Visit: Yes (3) Chronic ulcer of left foot with fat layer exposed Status: Chronic Current Visit: Yes (4) Peripheral arterial occlusive disease Status: Chronic Current Visit: No (5) Ex-smoker Status: Acute Current Visit: Yes (6) Atrial fibrillation Status: Acute Assessment and plan: Holding Xarelto for angiogram tomorrow. Covering with lovenox. Current Visit: No (7) Coronary arteriosclerosis Status: Acute Current Visit: No
[2017-05-31 09:45] LABS: Basophils # 0.1 K/mm3 (0-0.2); Basophils % 0.6 % (0.1-2.0); Eosinophils # 0.8 K/mm3 (0.0-0.4); Eosinophils % 6.3 % (0.1-12.0); Hematocrit 32.6 % (42.0-52.0); Hemoglobin 10.3 g/dL (14.1-18.0); Lymphocytes # 1.9 K/mm3 (0.7-4.5); Lymphocytes % 15.1 K/mm3 (10-50); Mean Corpuscular HGB Conc 31.7 g/dL (31.8-35.4); Mean Corpuscular Hemoglobin 29.1 pg (27.0-31.2); Mean Corpuscular Volume 91.9 fl (80-94); Mean Platelet Volume 7.5 fl (7.4-10.4); Monocytes # 0.5 K/mm3 (0.1-1.0); Monocytes % 4.3 % (1.7-9.3); Neutrophils # 9.1 K/mm3 (1.8-7.8); Neutrophils % 73.7 % (37.0-80.0); Platelet Count 544 K/mm3 (142-424); Red Blood Count 3.55 M/mm3 (4.60-6.20); Red Cell Distribution Width 13.4 % (11.5-17.5); White Blood Count 12.4 K/mm3 (4.8-10.8)
[2017-05-31 12:44] LABS: POC Glucose,Bedside 106 mg/dL
[2017-05-31 16:00] VITALS: BP 123/57; PULSE 82; RESP 18; TEMP 36.5; O2SAT 96
--- NOTE | 2017-05-31 18:22 | PC.NURSE ---
PT HAS HD NO CHANGES FROM PREVIOUS ASSESSMENT. PT HAS YELLED OUT OFF AND ON THIS SHIFT. MADE THREATS TO HIT STAFF. BEEN RESISTANT TO CARE. PT DID HAVE A BATH THIS SHIFT. WAS NOTIFIED THAT PT BUTTOCKS IS BECOMING RED AND SOFT. PT REFUSES TO STAY TURNED. ALARM IS ON. WILL CONTINUE TO MONITOR PT CONDITION. REPORT TO BE GIVEN TO ONCOMING NURSE.
--- NOTE | 2017-05-31 19:22 | PC.NURSE ---
ENTERED ON WRONG PT
[2017-05-31 20:00] VITALS: BP 136/69; PULSE 92; RESP 20; TEMP 36.7; O2SAT 93
[2017-06-01] VITALS (20 sets, daily range): BP systolic 123–176; BP diastolic 64–99; PULSE 61–110; RESP 16–20; TEMP 36.1–36.9; O2SAT 92–100; BMI 21.9
--- NOTE | 2017-06-01 | IR_ITS ---
CARDIAC CATHETERIZATION DATE OF CATHETERIZATION:06/01/2017 10:43 AM PROCEDURES: 1. Catheter placement in the abdominal aorta 2. Bilateral iliofemoral runoff 3. Stent deployment to the right common iliac artery 4. Stent deployment to the right popliteal artery and right superficial femoral artery 5. Post stent deployment artery right popliteal artery angiogram INDICATION FOR TEST: 1. Limb threatening ischemia with gangrenous right foot 2. Peripheral artery disease 3. Right popliteal artery occlusion 4. Right common iliac artery stenosis Informed consent was obtained prior to the procedure. COMPLICATIONS: None ESTIMATED BLOOD LOSS: Less than 10 ml. TECHNIQUE: One percent lidocaine was used to anesthetize the left groin. Left femoral artery was accessed via the Seldinger technique and a 5 Montenegrin sheath was placed in the left femoral artery. A pigtail catheter was advanced into the abdominal aorta and abdominal aortography was performed with bilateral iliofemoral runoff. 6500 units of heparin was administered intravenously and an advantage wire was in placed into the right superficial femoral artery. A destination 6 Montenegrin sheath was placed in the left femoral artery and into the ostial proximal right common iliac artery. A 9 mm x 29 mm absolute pro stent was deployed at 20 robert reducing the stenosis. Following this a 10 mm x 20 mm balloon was then deployed at 20 robert to post dilate. Following this the wire was placed distally into the superficial femoral artery and the destination sheath was advanced to where the tip of the sheath ended at the right common femoral artery. The advantage wire was used to push through the occlusion of the popliteal artery. A 5 mm x 60 mm balloon was deployed at 20 robert on 2 occasions to predilate the stenosis. A 5.5 x 150 mm Supera stent was stacked in the right popliteal artery extending back into the right superficial femoral artery. A 5 mm x 80 mm fresh balloon was then deployed at 20 robert in order to help post dilate. Excellent angiographic results were obtained with 100% occlusion reduced to 0%. Following this a 10 mm x 20 mm balloon was in placed at the proximal portion of the right common iliac stent and deployed at 20 robert to post dilate. Repeat angiography demonstrated excellent flow down the popliteal artery superficial femoral artery with single vessel runoff below the knee. At the end of the procedure the apparatus was removed the groin is reprepped closure changed sheath was removed good hemostasis was achieved using Perclose device patient transferred to the postop holding area in stable condition ANGIOGRAPHIC RESULTS: The distal abdominal aorta is mildly aneurysmal with no focal stenosis. The left common iliac artery is widely patent with tendon 20% stenoses while the right common iliac artery is a very eccentric calcified fingerlike projection creating a 60% stenosis. Both internal iliac arteries are patent The bilateral external iliac arteries have atheromatous plaque but no stenosis greater than 20%. The bilateral common femoral arteries are patent with mild atheromatous plaque no stenosis greater than 20% The bilateral profunda femoris arteries are patent The right superficial femoral artery has mid vessel 50 and 60% stenoses and then occluded at the abductors canal and then reconstitutes at the popliteal artery proximally. The anterior tibialis artery is patent. The left superficial femoral artery has stents in the proximal mid and distal segment which have diffuse 50% in-stent restenosis with one focal area of 70-80% in-stent restenosis at the abductor canal. There is single-vessel runoff below the knee from the anterior tibialis artery IMPRESSION: 1. Peripheral artery disease as described above 2. Successful pe
[2017-06-01 02:38] LABS: Vancomycin,Trough 10.2 mcg/ml (10.0-20.0)
--- NOTE | 2017-06-01 02:44 | PC.NURSE ---
AT 0240 [facility] PHARMICIST CALLED AFTER VANCO TROUGH DRAWN. OK TO CONTINUE TO GIVE CURRENT DOSE OF VANCOMYCIN.
--- NOTE | 2017-06-01 04:22 | PC.NURSE ---
PT HAS SLEPT AT INTERVALS. PT CONFUSED. COMBATIVE AT TIMES. HOLLARS OUT. BILAT FEET WITH DRESSING INTACT. PT TURNS SELF. VOIDING SMALL AMOUNTS PER URINAL, ALSO WITH URINARY INCONTINENCE. NPO FOR PROCEDURE TODAY.
[2017-06-01 06:17] LABS: POC Glucose,Bedside 126 mg/dL
[2017-06-01 06:17] LABS: POC Glucose,Bedside 186 mg/dL
--- NOTE | 2017-06-01 07:05 | P.PN_ITS ---
Internal Medicine - PN: Subj *Date: 06/01/17 *Time: 07:03 Interval history: Patient is scheduled for angiogram this morning. Overall no change in patient' s condition. Exam Vital signs and Labs for Last 24 Hours: Temp Pulse Resp BP Pulse Ox 98.4 F 99 H 20 143/80 94 L 06/01/17 04:00 06/01/17 04:00 06/01/17 04:00 06/01/17 04:00 06/01/17 04:00 Laboratory Results - last 24 hr 05/31/17 07:30: Urine Color Yellow, Urine Appearance Clear, Urine pH 6.0, Ur Specific [place] <= 1.005, Urine Protein Negative, Urine Glucose (UA) Negative, Urine Ketones Negative, Urine Blood Negative, Urine Nitrate Negative, Urine Bilirubin Negative, Urine Urobilinogen 0.2, Ur Leukocyte Esterase Negative, Urine RBC None, Urine WBC Occasional, Ur Squamous Epith Cells None, Urine Bacteria None 05/31/17 08:55: WBC 12.4 H, RBC 3.55 L, Hgb 10.3 L, Hct 32.6 L, MCV 91.9, MCH 29.1, MCHC 31.7 L, RDW 13.4, Plt Count 544 H, MPV 7.5, Neut % (Auto) 73.7, Lymph % (Auto) 15.1, [place] % (Auto) 4.3, Eos % (Auto) 6.3, Baso % (Auto) 0.6, Neut # (Auto) 9.1 H, Lymph # (Auto) 1.9, Tillman # (Auto) 0.5, Eos # (Auto) 0.8 H, Baso # (Auto) 0.1 05/31/17 08:55: Sodium 144, Potassium 4.4, Chloride 109 H, Carbon Dioxide 28, Anion Gap 11.4, BUN 15 D, Creatinine 0.96, Estimated Creat Clear 51, Estimated GFR 75, Est GFR ( Amer) 91, Glucose 110 H 05/31/17 12:34: POC Glucose 106 05/31/17 20:27: POC Glucose 186 06/01/17 01:40: Vancomycin Trough 10.2 06/01/17 06:07: POC Glucose 126 I & O for Last 24 hours: Intake & Output 05/29/17 05/30/17 05/31/1706/01/18 11:59 11:59 11:59 11:59 Intake Total 540 / 540 946 / 946 Output Total 350 / 350 450 / 450 Balance 190 / 190 496 / 496 Weight 138 lb 7 oz 136 lb 1 oz Narrative: Is asleep but awakens easily. He remains confused and oriented to person only. Lungs are clear. Heart has a irregular r rate and rhythm. Dressings are intact on the feet Assessment and Plan (1) Cellulitis of foot, right Start date: 05/31/17 Start time: 09:57 Current visit: Yes Status: Acute Category: Medical Code(s): L03.115 - Cellulitis of right lower limb (2) Gangrene associated with type 2 diabetes mellitus Start date: 05/25/17 Start time: 08:00 Current visit: Yes Status: Acute Category: Medical Code(s): E11.52 - Type 2 diabetes mellitus with diabetic peripheral angiopathy with gangrene (3) Chronic ulcer of left foot with fat layer exposed Start date: 01/24/17 Start time: 08:00 Current visit: Yes Status: Chronic Category: Medical Code(s): L97.522 - Non-pressure chronic ulcer of other part of left foot with fat layer exposed (4) Peripheral arterial occlusive disease Start date: 05/30/17 Start time: 13:16 Current visit: No Status: Chronic Category: Medical Code(s): I77.9 - Disorder of arteries and arterioles, unspecified - Assessment and plan all Dx Assessment and Plan for all problems:: Peripheral angiogram today with further decision-making after angiogram.
[2017-06-01 11:15] LABS: CATHL Activated Clotting Time 224 SEC (74-125)
--- NOTE | 2017-06-01 11:27 | HMH.PHACONS ---
- Pharmacy Consult Date: 06/01/17 Time: 11:27 Referring provider: DR. AMAYA Reason for Consult:: VANCOMYCIN TROUGH LEVEL Allergies and ADEs:: Allergies Allergy/AdvReac Type Severity Reaction Status Date / Time No Known Drug Allergies Allergy Unknown -- Unverified 05/25/17 12:51 [NKDA] Home Medications:: Home Medications Medication Instructions Recorded Confirmed Type atorvastatin 40 mg tablet 40 mg PO HS 30 Days #30 tab 05/18/17 05/30/17 History clopidogrel 75 mg tablet 75 mg PO HS 30 Days #30 tab 05/18/17 05/31/17 History diltiazem CD 240 mg 240 mg PO DAILY 30 Days #30 05/18/17 05/30/17 History capsule,extended release 24 hr insulin glargine 100 unit/mL (3 36 units SUB-Q HS 8 Days #3 05/18/17 05/30/17 History mL) subcutaneous pen insulin lispro 100 unit/mL 0 units SUB-Q BID 15 Days #3 05/18/17 05/30/17 History subcutaneous pen metoprolol succinate ER 25 mg 25 mg PO DAILY 30 Days #30 05/18/17 05/30/17 History tablet,extended release 24 hr rivaroxaban 15 mg tablet 15 mg PO HS 30 Days #30 tab 05/18/17 05/30/17 History sitagliptin 50 mg-metformin ER 1 tab PO DAILY 30 Days #30 05/18/17 05/30/17 History 1,000 mg tablet,extended release 24h mp Acetaminophen [Tylenol Extra 1,000 mg PO Q6HP PRN 05/30/17 05/30/17 History Strength] Ascorbic Acid [Vitamin C 500mg 500 mg PO BID 05/30/17 05/30/17 History tablet] Aspirin [Adult Low Dose Aspirin EC] 81 mg PO DAILY 05/30/17 05/30/17 History Ertapenem Sodium [Invanz 1gm ADV] 1 gm IM DAILY 05/30/17 05/31/17 History Hydrocod/Acet 5/325 mg [Iona 1 tab PO Q4HP PRN 05/30/17 05/30/17 History 5/325mg tablet] Hydrocod/Acet 5/325 mg [Iona 1 tab PO Q8HP PRN 05/30/17 05/30/17 History 5/325mg tablet] Sennosides [Senna] 15 mg PO HS 05/30/17 05/30/17 History Zinc Sulfate [Zinc Sulfate 220mg 220 mg PO HS 05/30/17 05/30/17 History capsule] risperiDONE [Risperidone] 0.25 mg PO BID 05/30/17 05/30/17 History Height: 1.68 m Weight: 61.717 kg Laboratory Results:: Laboratory Results - last 24 hr 05/31/17 12:34: POC Glucose 106 05/31/17 20:27: POC Glucose 186 06/01/17 01:40: Vancomycin Trough 10.2 06/01/17 06:07: POC Glucose 126 06/01/17 10:02: Activated Clotting Time 224 H* Medical History: Reports:: Atrial Fibrillation, Deep Vein Thrombosis, Dementia, Diabetes Mellitus Type 2, Peripheral Artery Disease, Transient Ischemic Attacks (TIA) Assessment and Plan (1) Cellulitis of foot, right Start date: 05/31/17 Start time: 09:57 Current visit: Yes Status: Acute Category: Medical Code(s): L03.115 - Cellulitis of right lower limb (2) Gangrene associated with type 2 diabetes mellitus Start date: 05/25/17 Start time: 08:00 Current visit: Yes Status: Acute Category: Medical Code(s): E11.52 - Type 2 diabetes mellitus with diabetic peripheral angiopathy with gangrene (3) Chronic ulcer of left foot with fat layer exposed Start date: 01/24/17 Start time: 08:00 Current visit: Yes Status: Chronic Category: Medical Code(s): L97.522 - Non-pressure chronic ulcer of other part of left foot with fat layer exposed (4) Peripheral arterial occlusive disease Start date: 05/30/17 Start time: 13:16 Current visit: No Status: Chronic Category: Medical Code(s): I77.9 - Disorder of arteries and arterioles, unspecified - Assessment and plan all Dx Assessment and Plan for all problems:: BASED ON VANCOMYCIN TROUGH LEVEL AND PATIENT FACTORS, RECOMMEND CONTINUING VANCOMYCIN 1000 MG IV Q18H. PHARMACY WILL CONTINUE TO MONITOR DAILY AND ADJUST APPROPRIATE.
[2017-06-01 11:54] LABS: Microscopic, Urine URINE MICROSCOPIC (MICROSCOPIC)
[2017-06-01 12:15] LABS: Appearance,Urine CLEAR (Clear); Bilirubin,Urine Negative (Negative); Blood, Urine Negative (Negative); Color,Urine YELLOW (Yellow); Glucose,Urine (UA) Negative (Negative); Ketones,Urine Negative (Negative); Leukocyte Esterase,Urine Negative (Negative); Nitrate,Urine Negative (Negative); PH,Urine 6.5 (5.0-8.5); Protein,Urine Negative (Negative); Specific Gravity, Urine <= 1.005 (1.005-1.030); Urobilinogen,Urine 0.2 EU/dl (0.2)
[2017-06-01 12:31] LABS: Bacteria,Urine Trace /lpf
--- NOTE | 2017-06-01 14:57 | HMH.ORTHPN ---
Subjective Date: 06/01/17 Time: 14:30 Principal diagnosis: Right 5th toe gangrene, cellulitis Interval history: Patient is asleep, resting comfortably in bed. Patient had angiogram with 2 stent vascular intervention to the right lower extremity today by Dr. Maradiaga. PN: Obj Ex Vital signs: Temp Pulse Resp BP Pulse Ox 98.4 F 105 H 20 176/93 98 06/01/17 04:00 06/01/17 12:40 06/01/17 12:40 06/01/17 12:40 06/01/17 12:40 Narrative: Dr. Maradiaga did a right popliteal and common iliac stent today, 06/01/17. - Constitutional no acute distress, thin - Detailed Lower Extremity Exam Foot/Toes: Left amputation (TMA) Comments: LEFT FOOT: The skin is not dusky. No active purulence. The left TMA site wound secondary to dehiscence has no new signs of infection. No eschar. The graft was intact to the medial incision but sloughed off the lateral side. There was fibrotic tissue noted laterally. No ascending cellulitis to left foot. The left TMA wound has healed medially. 05/25/17 measurements: There is a narrow wound along distal flap edge measuring 1.4 x 2.7 cm. The remaining lateral incision wound is 2.5 x 4.1 x 0.4 cm deep. Unchanged from 05/31/17: medial distal flap edge is not 1.2 x 2.5cm. The lateral incision wound is now 2.5 x 1.7 cm x 0.3cm deep. RIGHT FOOT: The right 5th toe smells worse today. Cellulitis noted to 5th toe is improving. There is interdigital maceration now to 3-4th interspaces. No active purulence. There is some pain with palpation. There are gangrenous changes to the right 3rd-4th toes, which are both dusky. Hallux has dark eschar at the toe tip. Cool temperature. - Urinary Catheter Management Ibarra Cath placed during this visit: yes Urethral indwelling: No Insertion date: 06/01/17 Insertion time: 11:20 Progress Note: A&P (1) Cellulitis of foot, right Status: Acute Assessment and plan: Discussed with Dr. Maradiaga. He did 2 stents today: right popliteal and common iliac. Vascular clearance for amputation surgery. 1. B/l dressing changes with betadine, DSD 2. Continue IV Ertapenem and Vancomycin 3. PWB with post op shoes 4. NPO after midnight 5. Consent: left wound debridement, right transmetatarsal amputation 6. I have discussed this with the patient and the family on multiple occasions. Patient/family understand he is high risk that if he has surgery, he may not heal or the wound may be slow to heal (like the left side). He may require a more proximal amputation, which could result in loss of partial foot, entire foot, or below the knee. Risks and benefits discussed. We discussed surgical intervention for amputation of the right foot. His 1, 3-5 have gangrenous changes. Patient also understands that they could have wound healing complications including delayed healing and continued infection. We discussed that if the wound does not heal, it is possible that they may need a more proximal amputation and could result in further loss of digits, loss of partial foot or loss of leg. We discussed the risks and benefits in great detail. Other surgical risks include: prolonged pain and swelling, further infection requiring oral or IV antibiotics, delay in healing of soft tissue or bone, nerve or blood vessel damage, CRPS/RSD, DVT, anesthesia complications, and even . 7. Plan for surgery tomorrow, 06/02/17 @ 1200: left wound debridement, right transmetatarsal amputation Current Visit: Yes (2) Gangrene associated with type 2 diabetes mellitus Status: Acute Current Visit: Yes (3) Chronic ulcer of left foot with fat layer exposed Status: Chronic Current Visit: Yes (4) Peripheral arterial occlusive disease Status: Chronic Current Visit: No
[2017-06-01 17:10] LABS: POC Glucose,Bedside 116 mg/dL
--- NOTE | 2017-06-01 18:09 | PC.NURSE ---
pt has had no changes from previous assessment. pt has slept most of day since arrival back to floor golden was placed in wharf labourer. pt is to scheduled for surgery tomorrow afternoon. safety is on. some medications were late related to being in procedure and sedation. md was notified of all late and ungiven meds. will continue to monitor pt condition. report to be given to oncoming nurse.
--- NOTE | 2017-06-01 18:30 | PC.NURSE ---
spoke with brent sanchez about cardiac strip rhythm. ordered bmp, mag, and cbc for am labs.
[2017-06-01 21:27] LABS: POC Glucose,Bedside 209 mg/dL
[2017-06-02] VITALS (11 sets, daily range): BP systolic 110–126; BP diastolic 52–63; PULSE 68–98; RESP 10–20; TEMP 36.1–36.9; O2SAT 93–100
--- NOTE | 2017-06-02 | XR_ITS ---
XR foot RT 2V Fluoroscopy time: 33 seconds HISTORY: Follow-up indication ITS.REASON: AMPUTATION IN OR ORDERING PHYSICIAN: Lopez Goss MD PATIENT AGE: 82 years COMPARISON: 05/25/2017 FINDINGS: C-arm with fluoroscopy utilized for transmetatarsal amputation. Left foot: AP and oblique view show transmetatarsal amputation of the right foot. IMPRESSION: Status post transmetatarsal amputation of the right foot
--- NOTE | 2017-06-02 04:35 | PC.NURSE ---
PT HAS SLEPT INTERMITTENTLY. CONFUSED. YELLING FOR JOSUE MOST NIGHT. ATTEMPTED TO REDIRECT PT FROM YELLING. UNSUCCESSFUL. RIGHT GROIN WITH DRSG C,D,I. BILAT FEET WITH DRSG C,D,I. HUGO TO BSD WITH CLEAR YELLOW URINE. PT NPO TONIGHT FOR SURGERY LATER TODAY.
[2017-06-02 06:18] LABS: POC Glucose,Bedside 130 mg/dL
[2017-06-02 06:56] LABS: Basophils # 0.1 K/mm3 (0-0.2); Basophils % 0.4 % (0.1-2.0); Eosinophils # 0.4 K/mm3 (0.0-0.4); Eosinophils % 2.8 % (0.1-12.0); Hematocrit 33.7 % (42.0-52.0); Hemoglobin 10.8 g/dL (14.1-18.0); Lymphocytes # 1.7 K/mm3 (0.7-4.5); Lymphocytes % 12.3 K/mm3 (10-50); Mean Corpuscular HGB Conc 31.9 g/dL (31.8-35.4); Mean Corpuscular Hemoglobin 29.1 pg (27.0-31.2); Mean Corpuscular Volume 91.3 fl (80-94); Mean Platelet Volume 7.6 fl (7.4-10.4); Monocytes # 0.9 K/mm3 (0.1-1.0); Monocytes % 6.3 % (1.7-9.3); Neutrophils % 78.1 % (37.0-80.0); Platelet Count 525 K/mm3 (142-424); Red Cell Distribution Width 13.3 % (11.5-17.5); White Blood Count 14.1 K/mm3 (4.8-10.8)
--- NOTE | 2017-06-02 07:03 | HMH.ACPN2 ---
Internal Medicine - PN: Subj *Date: 06/02/17 *Time: 07:03 Interval history: Patient is awake this morning and yelling out. When asked if there is problem he tells me he is getting ready to go to work. He denies any pain in the feet. He is scheduled for right transmetatarsal amputation this morning by Dr. Alonso Exam Vital signs and Labs for Last 24 Hours: Temp Pulse Resp BP Pulse Ox 98.3 F 91 H 20 111/63 96 06/02/17 04:00 06/02/17 04:00 06/02/17 04:00 06/02/17 04:00 06/02/17 04:00 Laboratory Results - last 24 hr 06/01/17 10:02: Activated Clotting Time 224 H* 06/01/17 11:19: Urine Color Yellow, Urine Appearance Clear, Urine pH 6.5, Ur Specific [place] <= 1.005, Urine Protein Negative, Urine Glucose (UA) Negative, Urine Ketones Negative, Urine Blood Negative, Urine Nitrate Negative, Urine Bilirubin Negative, Urine Urobilinogen 0.2, Ur Leukocyte Esterase Negative, Urine RBC None, Urine WBC 5-10, Ur Squamous Epith Cells None, Urine Bacteria Trace 06/01/17 16:57: POC Glucose 116 06/01/17 20:21: POC Glucose 209 06/02/17 06:01: POC Glucose 130 I & O for Last 24 hours: Intake & Output 05/30/17 05/31/17 06/01/17 06/02/17 11:59 11:59 11:59 11:59 Intake Total 540 / 540 946 / 946 570 / 570 Output Total 350 / 350 1250 / 1250 1999 / 1999 Balance 190 / 190 -304 / -304 -1430 / -1430 Weight 138 lb 7 oz 136 lb 1 oz 135 lb 4 oz Narrative: He is awake and oriented to person only. Lungs remain clear. Heart rate is irregular. Assessment and Plan (1) Cellulitis of foot, right Start date: 05/31/17 Start time: 09:57 Current visit: Yes Status: Acute Category: Medical Code(s): L03.115 - Cellulitis of right lower limb (2) Gangrene associated with type 2 diabetes mellitus Start date: 05/25/17 Start time: 08:00 Current visit: Yes Status: Acute Category: Medical Code(s): E11.52 - Type 2 diabetes mellitus with diabetic peripheral angiopathy with gangrene (3) Chronic ulcer of left foot with fat layer exposed Start date: 01/24/17 Start time: 08:00 Current visit: Yes Status: Chronic Category: Medical Code(s): L97.522 - Non-pressure chronic ulcer of other part of left foot with fat layer exposed (4) Peripheral arterial occlusive disease Start date: 05/30/17 Start time: 13:16 Current visit: No Status: Chronic Category: Medical Code(s): I77.9 - Disorder of arteries and arterioles, unspecified - Assessment and plan all Dx Assessment and Plan for all problems:: Transmetatarsal amputation today. Due to his underlying dementia that has led to him removing several PICC lines at the facility where he resides I am hopeful that we can avoid long-term antibiotics on the patient. We will wait and see what surgical findings are.
[2017-06-02 07:05] LABS: Anion Gap 10.2 mEq/L (5-15); Blood Urea Nitrogen 14 mg/dL (7-18); Carbon Dioxide 29 mmol/L (21.0-32.0); Chloride 107 mmol/L (98-107); Creatinine Clearance Estimated 48 mL/min (0-300); Creatinine,Serum 1.04 mg/dL (0.70-1.30); Estimated Glomerular Filt Rate 69 ml/min (>60); GFR (African American) 83 ML/MIN (>60); Glucose 124 mg/dL (74-106); Magnesium 1.7 mg/dL (1.4-2.2); Potassium 4.2 mmoL/L (3.5-5.1); Sodium 142 mmol/L (136-145)
--- NOTE | 2017-06-02 07:43 | HMH.ORTHPN ---
Subjective Date: 06/02/17 Time: 07:35 Principal diagnosis: Right 5th toe gangrene, cellulitis Interval history: Patient is awake, laying in bed. He is yelling and trying to pull out the golden catheter. Patient denies pain. PN: Obj Ex Vital signs: Temp Pulse Resp BP Pulse Ox 98.3 F 91 H 20 111/63 96 06/02/17 04:00 06/02/17 04:00 06/02/17 04:00 06/02/17 04:00 06/02/17 04:00 - Constitutional no acute distress, thin, combative, agitated - Detailed Lower Extremity Exam Comments: B/l foot dressing intact. They were not removed (surgery today) - Urinary Catheter Management Golden Cath placed during this visit: yes Urethral indwelling: No Insertion date: 06/01/17 Insertion time: 11:20 Progress Note: A&P (1) Cellulitis of foot, right Start date: 06/02/17 Start time: 07:35 Status: Acute Assessment and plan: 1. NPO now 2. Continue antibiotics 3. Plan for OR today @ 1200 for left wound debridement and right TMA Current Visit: Yes (2) Gangrene associated with type 2 diabetes mellitus Status: Acute Current Visit: Yes (3) Chronic ulcer of left foot with fat layer exposed Status: Chronic Current Visit: Yes (4) Peripheral arterial occlusive disease Status: Chronic Current Visit: No
--- NOTE | 2017-06-02 08:11 | HMH.CARDPN2 ---
Subjective PN (PG) Date: 06/02/17 Time: 07:45 Principal diagnosis: Right 5th toe gangrene, cellulitis Interval history: Pt awake and yelling when no one in room. No complaints. Pulling off telemetry unit and adhesive pads. Patient is going for surgery on his right foot today and debridement of his left foot as well. PN Exam ([facility] Owned) Vital signs: Temp Pulse Resp BP Pulse Ox 98.3 F 91 H 20 111/63 96 06/02/17 04:00 06/02/17 04:00 06/02/17 04:00 06/02/17 04:00 06/02/17 04:00 - Routine Respiratory Exam Present: CTA bilaterally - Routine Cardiovascular Exam Present: irregularly irregular - Routine Neurological Exam Present: alert, moving all extremities. Absent: oriented X3 - Urinary Catheter Management Ibarra Cath placed during this visit: yes Urethral indwelling: No Insertion date: 06/01/17 Insertion time: 11:20 A/P Progress Note ([facility]) (1) Cellulitis of foot, right Status: Acute Current Visit: Yes (2) Gangrene associated with type 2 diabetes mellitus Status: Acute Current Visit: Yes (3) Chronic ulcer of left foot with fat layer exposed Status: Chronic Current Visit: Yes (4) Peripheral arterial occlusive disease Status: Chronic Assessment and plan: s/p stenting of right leg yesterday. On DAPT. Current Visit: No (5) Ex-smoker Status: Acute Current Visit: Yes (6) Atrial fibrillation Status: Acute Assessment and plan: On lovenox until discharge then resume Xarelto. Current Visit: No (7) Coronary arteriosclerosis Status: Acute Assessment and plan: Clinically stable. Current Visit: No
--- NOTE | 2017-06-02 08:16 | P.PN_ITS ---
Subjective PN (PG) Date: 06/02/17 Time: 07:45 Principal diagnosis: Right 5th toe gangrene, cellulitis Interval history: Pt awake and yelling when no one in room. No complaints. Pulling off telemetry unit and adhesive pads. Patient is going for surgery on his right foot today and debridement of his left foot as well. PN Exam ([facility] Owned) Vital signs: Temp Pulse Resp BP Pulse Ox 98.3 F 91 H 20 111/63 96 06/02/17 04:00 06/02/17 04:00 06/02/17 04:00 06/02/17 04:00 06/02/17 04:00 - Routine Respiratory Exam Present: CTA bilaterally - Routine Cardiovascular Exam Present: irregularly irregular - Routine Neurological Exam Present: alert, moving all extremities. Absent: oriented X3 - Urinary Catheter Management Ibarra Cath placed during this visit: yes Urethral indwelling: No Insertion date: 06/01/17 Insertion time: 11:20 A/P Progress Note ([facility]) (1) Cellulitis of foot, right Status: Acute Current Visit: Yes (2) Gangrene associated with type 2 diabetes mellitus Status: Acute Current Visit: Yes (3) Chronic ulcer of left foot with fat layer exposed Status: Chronic Current Visit: Yes (4) Peripheral arterial occlusive disease Status: Chronic Assessment and plan: s/p stenting of right leg yesterday. On DAPT. Current Visit: No (5) Ex-smoker Status: Acute Current Visit: Yes (6) Atrial fibrillation Status: Acute Assessment and plan: On lovenox until discharge then resume Xarelto. Current Visit: No (7) Coronary arteriosclerosis Status: Acute Assessment and plan: Clinically stable. Current Visit: No
--- NOTE | 2017-06-02 09:57 | HMH.ACPN ---
Internal Medicine - PN: Subj *Date: 06/02/17 *Time: 09:57 Exam Vital signs and Labs for Last 24 Hours: Temp Pulse Resp BP Pulse Ox 98.5 F 72 18 110/58 95 06/02/17 08:00 06/02/17 08:00 06/02/17 08:00 06/02/17 08:00 06/02/17 08:00 Laboratory Results - last 24 hr 06/01/17 10:02: Activated Clotting Time 224 H* 06/01/17 11:19: Urine Color Yellow, Urine Appearance Clear, Urine pH 6.5, Ur Specific [place] <= 1.005, Urine Protein Negative, Urine Glucose (UA) Negative, Urine Ketones Negative, Urine Blood Negative, Urine Nitrate Negative, Urine Bilirubin Negative, Urine Urobilinogen 0.2, Ur Leukocyte Esterase Negative, Urine RBC None, Urine WBC 5-10, Ur Squamous Epith Cells None, Urine Bacteria Trace 06/01/17 16:57: POC Glucose 116 06/01/17 20:21: POC Glucose 209 06/02/17 06:01: POC Glucose 130 06/02/17 06:05: WBC 14.1 H, RBC 3.70 L, Hgb 10.8 L, Hct 33.7 L, MCV 91.3, MCH 29.1, MCHC 31.9, RDW 13.3, Plt Count 525 H, MPV 7.6, Neut % (Auto) 78.1, Lymph % (Auto) 12.3, [place] % (Auto) 6.3, Eos % (Auto) 2.8, Baso % (Auto) 0.4, Neut # (Auto) 11.0 H, Lymph # (Auto) 1.7, [place] # (Auto) 0.9, Eos # (Auto) 0.4, Baso # (Auto) 0.1 06/02/17 06:05: Sodium 142, Potassium 4.2, Chloride 107, Carbon Dioxide 29, Anion Gap 10.2, BUN 14, Creatinine 1.04, Estimated Creat Clear 48, Estimated GFR 69, Est GFR ( Amer) 83, Glucose 124 H, Magnesium 1.7 I & O for Last 24 hours: Intake & Output 05/30/17 05/31/17 06/01/17 06/02/17 23:59 23:59 23:59 23:59 Intake Total 180 / 180 1056 / 1056 570 / 570 250 / 250 Output Total 350 / 350 200 / 200 2450 / 2450 600 / 600 Balance -170 / -170 856 / 856 -1880 / -1880 -350 / -350 Weight 62.794 kg 62.794 kg 61.71 kg 61.348 kg Assessment and Plan (1) Cellulitis of foot, right Start date: 06/02/17 Start time: 07:35 Current visit: Yes Status: Acute Category: Medical Code(s): L03.115 - Cellulitis of right lower limb (2) Gangrene associated with type 2 diabetes mellitus Start date: 05/25/17 Start time: 08:00 Current visit: Yes Status: Acute Category: Medical Code(s): E11.52 - Type 2 diabetes mellitus with diabetic peripheral angiopathy with gangrene (3) Chronic ulcer of left foot with fat layer exposed Start date: 01/24/17 Start time: 08:00 Current visit: Yes Status: Chronic Category: Medical Code(s): L97.522 - Non-pressure chronic ulcer of other part of left foot with fat layer exposed (4) Peripheral arterial occlusive disease Start date: 05/30/17 Start time: 13:16 Current visit: No Status: Chronic Category: Medical Code(s): I77.9 - Disorder of arteries and arterioles, unspecified The patient's infection will respond to the chosen ABx?: Yes Is the patient receiving the right drug, dose, and route?: Yes Could a more targeted ABx be ordered?: No (CURRENTLY RECEIVING INVANZ AND VANCOMYCIN)
--- NOTE | 2017-06-02 11:10 | P.PN_ITS ---
[facility] [place] Anesthesia Checklist - Structural Data Admitted From: Inpatient Planned Operative Procedure/s: transmetatarsal amputation Consent for Planned Operative Procedure(s) Verified: Yes Verified Documents: Surgical Consent, History and Physical - NPO Status Verified Time NPO: 00:00 - Additional verifications Anesthesia Reactions: No - Airway Assessment C-Spine Mobility Assessed: Yes (mp2) TMJ Mobility Assessed: Yes - Neurological Assessment Level of Consciousness: Awake, Alert - Anesthesia Plan Anesthesia Risk discussed: Yes Anesthesia Plan: Verified ASA Class: III Anesthesia Type: MAC [facility] [place] Anesthesia HX I have reviewed the patient's past medical history: Yes Medical History: Reports:: Atrial Fibrillation, Deep Vein Thrombosis, Dementia, Diabetes Mellitus Type 2, Hyperlipidemia, Hypertension, Peripheral Artery Disease, Transient Ischemic Attacks (TIA) Other Medical History: Reports: Arthritis Laterality Cases: Left: Other Other Surgeries: Yes: Other (TMA Left Foot) Amputation: Yes Fractures: No *Family Hx:: Unable to obtain
--- NOTE | 2017-06-02 12:03 | PC.NURSE ---
PT IS OFF UNIT AT THIS TIME. IN SURGERY.
--- NOTE | 2017-06-02 13:32 | HMH.ANESI ---
[facility] Anesthesia Record Part I Intake, IV Amount: 500 Estimated blood loss (mL): 10 Urine output (mL): 100 Blood Pressure: 126/58 SaO2: 100 Pulse Rate: 77 Respiratory Rate: 10 Temperature: 97 F Patient is:: Drowsy, Stable Stable to PACU at:: 13:33
--- NOTE | 2017-06-02 13:34 | P.PN_ITS ---
[facility] Anesthesia Record Part II Discharge Time: 14:03 Destination: 2nd floor PACU nurse assessment reviewed?: Yes Patient Condition:: Good Anesthesia Complications:: None
--- NOTE | 2017-06-02 14:00 | PC.NURSE ---
pt off unit in surgery.
--- NOTE | 2017-06-02 16:41 | SW/DCPLANNER ---
MR CHATTERJEE IS ON A BEDHOLD AT [facility] AND I HAVE CALLED RIP AND SHE IS PREPARED TO TAKE HIM BACK... I TOLD HER HE MAY POSSIBLY BE READY SOON AT IN THE AM (TUESDAY)....
--- NOTE | 2017-06-02 17:21 | HMH.OPNOTE ---
Date of procedure: 06/02/17 Pre-op Diagnosis:: 1. Left foot DM ulcer (s/p L TMA wound dehisence) 2. Right foot cellulitis 3. Right foot gangrene 4. 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 PAD Post-op diagnosis:: same Procedure performed:: 1. Left foot wound debridement with delayed primary closure 2. Right transmetatarsal amputation Surgeon:: Estella Alonso DPM COMPUTER SOFTWARE ENGINEER:: Donnie Ritter, Other Anesthesia: MAC Estimated blood loss (mL): 10 Clinical Note:: Mr. Umanzor is a 82 y/o male who was admitted 05/30/17 for worsening right foot infection. He was last seen in my clinic Wedn 05/25/17 for follow up of left TMA site, wound care. Last week, he had new gangrenous changes to the right hallux, and right 5th toe with discoloration and malodor. No active drainage was appreciated. He was started on oral antibiotics however the cultures on Tuesday showed multiple drug resistance. Patient is post op left foot amputation. S/P left transmetatarsal amputation on 01/01/17. He is s/p left 4-5th ray resection, I&D, application of wound vac 12/29/16 for gas gangrene. Patient is also s/p stent LEFT SFA, popliteal by Dr. Maradiaga 12/30/16. 12/28/16: ROYER R 0.52, L 0.26 TBI R 0.28, L 0.27 Abnormal pulses and waveforms indicating severe bilateral arterial disease Patient subsequently underwent revascularization yesterday 06/01/[address] Maradiaga for a right popliteal and common iliac stent. I have discussed this with the patient and the family on multiple occasions. Patient/family understand he is high risk that if he has surgery, he may not heal or the wound may be slow to heal (like the left side). He may require a more proximal amputation, which could result in loss of partial foot, entire foot, or below the knee. Risks and benefits discussed. We discussed surgical intervention for amputation of the right foot. His 1, 3-5 have gangrenous changes. Patient also understands that they could have wound healing complications including delayed healing and continued infection. We discussed that if the wound does not heal, it is possible that they may need a more proximal amputation and could result in further loss of digits, loss of partial foot or loss of leg. We discussed the risks and benefits in great detail. Other surgical risks include: prolonged pain and swelling, further infection requiring oral or IV antibiotics, delay in healing of soft tissue or bone, nerve or blood vessel damage, CRPS/RSD, DVT, anesthesia complications, and even . Operative findings:: 1. Left foot wound stable with no signs of infection. Post debridement the wound measured 1.4?2.5 cm and probed 0.2 cm on the most lateral aspect. There was a small linear medial wound that post debridement measured 1.6 x 0.2cm and did not probe to bone. 2. Right hallux eschar was wet and had purulent drainage. The third and fourth toes were dusky and had gangrenous changes. The fifth digit had drainage and gangrene noted with severe malodor. Cellulitis is noted extending to the 5th MPJ. The 5th proximal phalanx bone was soft and crumbly and had malodor to it. The 5th metatarsal head was hard and texture within normal limits. Operative note:: On this date and time patient was deemed an appropriate surgical candidate. With informed consent signed, the patient was taken to the operating theater. The patient was positioned supine. MAC anesthesia was induced. No tourniquet used. Left foot wound debridement: The left extremity was prepped and draped in normal sterile fashion. Attention was directed to the distal aspect of the left foot where previous TMA incision flap had dehised and ther was an ulcer was noted. Utilizing a 15 blade and curette the wound was debrided sharply sharply excisionally through skin into the subcu layer. Fibrotic tissue and biofilm was removed. No bleeding was noted. Post debridement the wound measured 1.4?2.5 cm and probed 0.2 cm on the most lateral aspect. There was a small linear medial woun
--- NOTE | 2017-06-02 17:25 | P.OP_ITS ---
Date of procedure: 06/02/17 Pre-op Diagnosis:: 1. Left foot DM ulcer (s/p L TMA wound dehisence) 2. Right foot cellulitis 3. Right foot gangrene 4. 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 PAD Post-op diagnosis:: same Procedure performed:: 1. Left foot wound debridement with delayed primary closure 2. Right transmetatarsal amputation Surgeon:: Estella Alonso DPM COUNSELING PROGRAM LEADER:: Donnie Ritter, Other Anesthesia: MAC Estimated blood loss (mL): 10 Clinical Note:: Mr. Umanzor is a 82 y/o male who was admitted 05/30/17 for worsening right foot infection. He was last seen in my clinic Wedn 05/25/17 for follow up of left TMA site, wound care. Last week, he had new gangrenous changes to the right hallux, and right 5th toe with discoloration and malodor. No active drainage was appreciated. He was started on oral antibiotics however the cultures on Tuesday showed multiple drug resistance. Patient is post op left foot amputation. S/P left transmetatarsal amputation on 01/01/17. He is s/p left 4-5th ray resection, I&D, application of wound vac for gas gangrene. Patient is also s/p stent LEFT SFA, popliteal by Dr. Maradiaga 12/30/16. 12/28/16: ROYER R 0.52, L 0.26 TBI R 0.28, L 0.27 Abnormal pulses and waveforms indicating severe bilateral arterial disease Patient subsequently underwent revascularization yesterday 06/01/[address] Maradiaga for a right popliteal and common iliac stent. I have discussed this with the patient and the family on multiple occasions. Patient/family understand he is high risk that if he has surgery, he may not heal or the wound may be slow to heal (like the left side). He may require a more proximal amputation, which could result in loss of partial foot, entire foot, or below the knee. Risks and benefits discussed. We discussed surgical intervention for amputation of the right foot. His 1, 3-5 have gangrenous changes. Patient also understands that they could have wound healing complications including delayed healing and continued infection. We discussed that if the wound does not heal, it is possible that they may need a more proximal amputation and could result in further loss of digits, loss of partial foot or loss of leg. We discussed the risks and benefits in great detail. Other surgical risks include: prolonged pain and swelling, further infection requiring oral or IV antibiotics, delay in healing of soft tissue or bone, nerve or blood vessel damage, CRPS/RSD, DVT, anesthesia complications, and even . Operative findings:: 1. Left foot wound stable with no signs of infection. Post debridement the wound measured 1.4?2.5 cm and probed 0.2 cm on the most lateral aspect. There was a small linear medial wound that post debridement measured 1.6 x 0.2cm and did not probe to bone. 2. Right hallux eschar was wet and had purulent drainage. The third and fourth toes were dusky and had gangrenous changes. The fifth digit had drainage and gangrene noted with severe malodor. Cellulitis is noted extending to the 5th MPJ. The 5th proximal phalanx bone was soft and crumbly and had malodor to it. The 5th metatarsal head was hard and texture within normal limits. Operative note:: On this date and time patient was deemed an appropriate surgical candidate. With informed consent signed, the patient was taken to the operating theater. The patient was positioned supine. MAC anesthesia was induced. No tourniquet used. Left foot wound debridement: The left extremity was prepped and draped in normal sterile fashion. Attention was directed to the distal aspect of the left foot where previous TMA incision flap had dehised and ther was an ulcer was noted. Utilizing a 15 blade and curette the wound was debrided
[2017-06-02 22:30] LABS: POC Glucose,Bedside 220 mg/dL
[2017-06-03] VITALS: BP 124/62; PULSE 110; PULSE 93; RESP 18; TEMP 36.9; O2SAT 93
--- NOTE | 2017-06-03 03:57 | PC.NURSE ---
Addendum entered by Nita Blancas, KAUR 06/03/17 04:05: SINUS TACHYCARDIA WITH MULTIPLE PAC. VSS. Original Note: PT HAS RESTED/SLEPT INTERMITTENTLY. PT IS CONFUSED AND COMBATIVE. PT YELLS OUT FREQUENTLY AND IS HARD TO CALM. PT HAS A HUGO CATHETER, CDI. PT IS ON HEART MONITOR. PT LUNGS WERE CLEAR UPON AUSCULTATION. PT BOWEL SOUNDS WERE HYPOACTIVE. PT HAD BILATERAL TOE AMPUTATION. DRESSINGS ARE APPLIED TO BILATERAL FEET, CDI. NO SIGNS OF ACUTE DISTRESS NOTED AT THIS TIME. WILL CONTINUE TO MONITOR.
[2017-06-03 04:00] VITALS: BP 136/58; PULSE 114; PULSE 78; RESP 20; TEMP 37.1; O2SAT 92
[2017-06-03 06:17] LABS: POC Glucose,Bedside 160 mg/dL
[2017-06-03 07:15] LABS: Anion Gap 10.9 mEq/L (5-15); Blood Urea Nitrogen 19 mg/dL (7-18); Carbon Dioxide 28 mmol/L (21.0-32.0); Chloride 105 mmol/L (98-107); Creatinine Clearance Estimated 47 mL/min (0-300); Creatinine,Serum 1.09 mg/dL (0.70-1.30); Estimated Glomerular Filt Rate 65 ml/min (>60); GFR (African American) 79 ML/MIN (>60); Glucose 151 mg/dL (74-106); Potassium 3.9 mmoL/L (3.5-5.1); Sodium 140 mmol/L (136-145)
--- NOTE | 2017-06-03 07:17 | PC.NURSE ---
HANDOFF REPORT GIVEN TO BARBI SHEFFIELD.
[2017-06-03 07:20] LABS: Basophils # 0.1 K/mm3 (0-0.2); Basophils % 0.4 % (0.1-2.0); Eosinophils # 0.4 K/mm3 (0.0-0.4); Eosinophils % 2.5 % (0.1-12.0); Hematocrit 29.6 % (42.0-52.0); Hemoglobin 9.5 g/dL (14.1-18.0); Lymphocytes # 1.8 K/mm3 (0.7-4.5); Lymphocytes % 12.5 K/mm3 (10-50); Mean Corpuscular HGB Conc 32.2 g/dL (31.8-35.4); Mean Corpuscular Hemoglobin 29.3 pg (27.0-31.2); Mean Corpuscular Volume 91.2 fl (80-94); Mean Platelet Volume 7.6 fl (7.4-10.4); Monocytes # 0.8 K/mm3 (0.1-1.0); Monocytes % 5.6 % (1.7-9.3); Neutrophils # 11.2 K/mm3 (1.8-7.8); Neutrophils % 78.9 % (37.0-80.0); Platelet Count 453 K/mm3 (142-424); Red Blood Count 3.25 M/mm3 (4.60-6.20); Red Cell Distribution Width 13.6 % (11.5-17.5); White Blood Count 14.1 K/mm3 (4.8-10.8)
--- NOTE | 2017-06-03 07:26 | HMH.DCSUM ---
General - General Admission date: 05/30/17 Discharge date: 06/03/17 HPI HPI: Mr. Umanzor is a 82 y/o male who is in the ER today. He was last seen in my clinic Wedn 05/25/17 for follow up of left TMA site, wound care. Last week, he had new gangrenous changes to the right hallux, and right 5th toe with discoloration and malodor. No active drainage was appreciated. He was started on oral antibiotics however the preliminary cultures on Tuesday showed multiple drug resistance. So I changed him to Ertapenem 1g every 24. The wound culture from 05/25/17 still has not finalized but the lab did call today indicating that there are more in his organisms noted with multiple drug resistance. The right 5th toe is smells worse today and cellulitis noted. There is some pain with palpation. WBC elevated at 15.2. Patient is usually combative but he seems rather subdued today. Patient is post op left foot amputation. S/P left transmetatarsal amputation on 01/01/17. He is s/p left 4-5th ray resection, I&D, application of wound vac 12/29/16 for gas gangrene. Patient is also s/p stent LEFT SFA, popliteal by Dr. Maradiaga 12/30/16. 12/28/16: ROYER R 0.52, L 0.26 TBI R 0.28, L 0.27 Abnormal pulses and waveforms indicating severe bilateral arterial disease Patient's medical history is significant for dementia, peripheral arterial disease, diabetes that is uncontrolled. During his stay at the nursing facility over the last several months patient has had difficulty following instructions due to his dementia. He has had falls in the facility. He has ambulated on his left foot after amputation. Patient is also been combative with staff. Objective Vital signs: Temp Pulse Resp BP Pulse Ox 98.8 F 78 20 136/58 92 L 06/03/17 04:00 06/03/17 04:00 06/03/17 04:00 06/03/17 04:00 06/03/17 04:00 Hospital Course Hospital Course: Patient was admitted to the hospital and placed on vancomycin and Invanz for his polymicrobial wound. Dr. Coto consulted cardiology service to see if there could be any further intervention for the patient's peripheral arterial disease. Plan was made for peripheral angiogram on June 01. On June 01 patient was taken to the [facility] for peripheral angiogram and subsequent stenting. After stenting Dr. Coto decided to take the patient to the operating room on June 02 for right transmetatarsal amputation to effectively remove the ischemic/gangrenous/infected part of the foot. Debridement of his left foot wound was also performed at that time. Patient was maintained on antibiotics postoperatively. Dressing changes performed by Dr. Coto on June 03. Patient will restart his regular medications once he returns to the [facility]. Mental status: Oriented to person only Rehab potential: Fair Prognosis: Fair Results Labs on day of discharge: Labs from last 24 hours 06/03/17 06/03/17 06/03/17 06:50 06:50 06:09 WBC 14.1 H RBC 3.25 L Hgb 9.5 L Hct 29.6 L MCV 91.2 MCH 29.3 MCHC 32.2 RDW 13.6 Plt Count 453 H MPV 7.6 Neut % (Auto) 78.9 Lymph % (Auto) 12.5 Real % (Auto) 5.6 Eos % (Auto) 2.5 Baso % (Auto) 0.4 Neut # (Auto) 11.2 H Lymph # (Auto) 1.8 Real # (Auto) 0.8 Eos # (Auto) 0.4 Baso # (Auto) 0.1 Sodium 140 Potassium 3.9 Chloride 105 Carbon Dioxide 28 Anion Gap 10.9 BUN 19 H D Creatinine 1.09 Estimated Creat Clear 47 Estimated GFR 65 Est GFR ( Amer) 79 Glucose 151 H POC Glucose 160 Magnesium 06/02/17 06/02/17 22:05 06:05 WBC RBC Hgb Hct MCV MCH MCHC RDW Plt Count MPV Neut % (Auto) Lymph % (Auto) Real % (Auto) Eos % (Auto) Baso % (Auto) Neut # (Auto) Lymph # (Auto) Real # (Auto) Eos # (Auto) Baso # (Auto) Sodium 142 Potassium 4.2 Chloride 107 Carbon Dioxide 29 Anion Gap 10.2 BUN 14 Creatinine 1
[2017-06-03 08:00] VITALS: PULSE 127
[2017-06-03 08:02] LABS: Vancomycin,Trough 11.6 mcg/ml (10.0-20.0)
[2017-06-03 08:05] VITALS: BP 103/56; PULSE 85; RESP 18; TEMP 37.8; O2SAT 92
--- NOTE | 2017-06-03 08:10 | XR_ITS ---
XR foot RT min 3V HISTORY: Follow-up amputation 05/25/2017 ORDERING PHYSICIAN: Lopez Goss MD PATIENT AGE: 82 years COMPARISON: None FINDINGS: There has been a clean transmetatarsal amputation at the mid to distal aspect of the first through fifth metatarsals. There is overlying bandage artifact.. IMPRESSION: Status post transmetatarsal amputation
--- NOTE | 2017-06-03 08:36 | P.PN_ITS ---
Subjective Date: 06/03/17 Time: 08:05 Principal diagnosis: Right 5th toe gangrene, cellulitis Interval history: Patient is comfortably lying in bed eating breakfast. No complaints of pain. PN: Obj Ex Vital signs: Temp Pulse Resp BP Pulse Ox 100.0 F H 85 18 103/56 92 L 06/03/17 08:05 06/03/17 08:05 06/03/17 08:05 06/03/17 08:05 06/03/17 08:05 Narrative: Patient is postop day 1 left foot wound debridement with delayed primary closure right foot transmetatarsal amputation. Dressings are clean dry and intact to both feet. - Constitutional no acute distress, thin - Routine Extremities Exam Present: pulses intact (diminished b/l), tenderness, extremity cold to touch. Absent: cyanosis, edema, joint swelling - Detailed Lower Extremity Exam Foot/Toes: Right swelling (mild R foot), Bilateral amputation (b/l TMA), Bilateral wound (sutures CDI) Comments: Sutures noted to both the left and right foot at the distal aspect of the amputation site. Sutures clean dry and intact. No erythema or ascending cellulitis noted. No purulent drainage. No drainage or malodor. No calf or thigh pain noted bilaterally. Pulses diminished. Skin temperature cool but slightly increased on the right compared to the left. - Routine Skin Exam Present: intact. Absent: erythema, warm, gangrene - Urinary Catheter Management Ibarra Cath placed during this visit: yes Urethral indwelling: No Insertion date: 06/01/17 Insertion time: 11:20 Progress Note: A&P (1) Cellulitis of foot, right Start date: 06/03/17 Start time: 08:05 Status: Acute Assessment and plan: 1. S/p Left foot wound debridement, delayed primary closure 2. S/p Right foot transmetatarsal amputation POD # 1, DOS: 06/02/17 R 5th met bone culture: gram stain NG Bone path: pending 1. Dressing changed today with betadine, DSD b/l 2. Maintain dressings clean dry and intact b/l 3. PWB in post op shoes, walker 4. Patient was unable to tolerate a PICC line. I do feel there was a surgical cure obtained. Patient will not need watermelon harvesting supervisor IV abx unless the proximal margin comes back with infection. Follow for final cultures. 5. Okay to discharge from Podiatry stand point to return to SNF 6. Follow up with me in Specialty clinic on 06/08/17 @ 1100. Current Visit: Yes (2) Gangrene associated with type 2 diabetes mellitus Status: Acute Current Visit: Yes (3) Chronic ulcer of left foot with fat layer exposed Status: Chronic Current Visit: Yes (4) Peripheral arterial occlusive disease Status: Chronic Current Visit: No
--- NOTE | 2017-06-03 09:09 | HMH.PHACONS ---
- Pharmacy Consult Date: 06/03/17 Time: 09:09 Referring provider: DR. AMAYA Reason for Consult:: VANCOMYCIN TROUGH LEVEL Allergies and ADEs:: Allergies Allergy/AdvReac Type Severity Reaction Status Date / Time No Known Drug Allergies Allergy Unknown -- Unverified 05/25/17 12:51 [NKDA] Home Medications:: Home Medications Medication Instructions Recorded Confirmed Type atorvastatin 40 mg tablet 40 mg PO HS 30 Days #30 tab 05/18/17 05/30/17 History clopidogrel 75 mg tablet 75 mg PO HS 30 Days #30 tab 05/18/17 05/31/17 History diltiazem CD 240 mg 240 mg PO DAILY 30 Days #30 05/18/17 05/30/17 History capsule,extended release 24 hr insulin glargine 100 unit/mL (3 36 units SUB-Q HS 8 Days #3 05/18/17 05/30/17 History mL) subcutaneous pen insulin lispro 100 unit/mL 0 units SUB-Q BID 15 Days #3 05/18/17 05/30/17 History subcutaneous pen metoprolol succinate ER 25 mg 25 mg PO DAILY 30 Days #30 05/18/17 05/30/17 History tablet,extended release 24 hr rivaroxaban 15 mg tablet 15 mg PO HS 30 Days #30 tab 05/18/17 05/30/17 History sitagliptin 50 mg-metformin ER 1 tab PO DAILY 30 Days #30 05/18/17 05/30/17 History 1,000 mg tablet,extended release 24h mp Acetaminophen [Tylenol Extra 1,000 mg PO Q6HP PRN 05/30/17 05/30/17 History Strength] Ascorbic Acid [Vitamin C 500mg 500 mg PO BID 05/30/17 05/30/17 History tablet] Aspirin [Adult Low Dose Aspirin EC] 81 mg PO DAILY 05/30/17 05/30/17 History Ertapenem Sodium [Invanz 1gm ADV] 1 gm IM DAILY 05/30/17 05/31/17 History Hydrocod/Acet 5/325 mg [[employer] 1 tab PO Q8HP PRN 05/30/17 05/30/17 History 5/325mg tablet] Sennosides [Senna] 15 mg PO HS 05/30/17 05/30/17 History Zinc Sulfate [Zinc Sulfate 220mg 220 mg PO HS 05/30/17 05/30/17 History capsule] risperiDONE [Risperidone] 0.25 mg PO BID 05/30/17 05/30/17 History Height: 1.68 m Weight: 61.859 kg Laboratory Results:: Laboratory Results - last 24 hr 06/02/17 22:05: POC Glucose 220 06/03/17 06:09: POC Glucose 160 06/03/17 06:50: WBC 14.1 H, RBC 3.25 L, Hgb 9.5 L, Hct 29.6 L, MCV 91.2, MCH 29.3, MCHC 32.2, RDW 13.6, Plt Count 453 H, MPV 7.6, Neut % (Auto) 78.9, Lymph % (Auto) 12.5, [place] % (Auto) 5.6, Eos % (Auto) 2.5, Baso % (Auto) 0.4, Neut # (Auto) 11.2 H, Lymph # (Auto) 1.8, [place] # (Auto) 0.8, Eos # (Auto) 0.4, Baso # (Auto) 0.1 06/03/17 06:50: Sodium 140, Potassium 3.9, Chloride 105, Carbon Dioxide 28, Anion Gap 10.9, BUN 19 H D, Creatinine 1.09, Estimated Creat Clear 47, Estimated GFR 65, Est GFR ( Amer) 79, Glucose 151 H 06/03/17 07:35: Vancomycin Trough 11.6 Medical History: Reports:: Atrial Fibrillation, Deep Vein Thrombosis, Dementia, Diabetes Mellitus Type 2, Hyperlipidemia, Hypertension, Peripheral Artery Disease, Transient Ischemic Attacks (TIA) Assessment and Plan (1) Cellulitis of foot, right Start date: 06/03/17 Start time: 08:05 Current visit: Yes Status: Acute Category: Medical Code(s): L03.115 - Cellulitis of right lower limb (2) Gangrene associated with type 2 diabetes mellitus Start date: 05/25/17 Start time: 08:00 Current visit: Yes Status: Acute Category: Medical Code(s): E11.52 - Type 2 diabetes mellitus with diabetic peripheral angiopathy with gangrene (3) Chronic ulcer of left foot with fat layer exposed Start date: 01/24/17 Start time: 08:00 Current visit: Yes Status: Chronic Category: Medical Code(s): L97.522 - Non-pressure chronic ulcer of other part of left foot with fat layer exposed (4) Peripheral arterial occlusive disease Start date: 05/30/17 Start time: 13:16 Current visit: No Status: Chronic Category: Medical Code(s): I77.9 - Disorder of arteries and arterioles, unspecified - Assessment and plan all Dx Assessment and Plan for all problems:: BASED ON VANCOMYCIN TROUGH LEVEL AND PATIENT FACTORS, RECOMMEND CONTINUING VANCOMYCIN 1000 MG IV Q18H. PHARMACY WILL CONTINUE TO MONITOR DAILY AND ADJUST AP
[2017-06-03 11:20] VITALS: BP 101/60; PULSE 80; RESP 18; TEMP 36.7; O2SAT 91
[2017-06-03 11:53] LABS: POC Glucose,Bedside 167 mg/dL
[2017-06-03 12:00] VITALS: PULSE 100
--- NOTE | 2017-06-03 13:02 | PC.NURSE ---
glove stitcher removed, cleaned, and returned to nurses station.
== END 2017-06-03 13:36 | disposition home or self-care (01) | DRG 253 ==
LOC: ER 13:36 → 2ND 14:33
PROVIDERS: Internal Medicine; Physician Assistant; Admitting Provider Family Medicine; Emergency Provider Emergency Medicine; Family Provider Podiatrist; PCP Family Medicine; Visit Provider Family Medicine
PROC: 047C34Z Dilation of Right Common Iliac Artery with Drug-eluting Intraluminal Device, Percutaneous Approach (ICD-10-PCS; 2017-06-01 09:00)
PROC: 0Y6X0Z0 Detachment at Right 5th Toe, Complete, Open Approach (ICD-10-PCS; principal; 2017-06-02 12:00)
PROC: 0Y6X0Z0 Detachment at Right 5th Toe, Complete, Open Approach (ICD-10-PCS; 2017-06-02 12:00)
DX: E11.52 Type 2 diabetes mellitus with diabetic peripheral angiopathy with gangrene (principal); M86.171 Other acute osteomyelitis, right ankle and foot; I70.261 Atherosclerosis of native arteries of extremities with gangrene, right leg; L03.115 Cellulitis of right lower limb; I48.2 Chronic atrial fibrillation; L97.919 Non-pressure chronic ulcer of unspecified part of right lower leg with unspecified severity; L97.522 Non-pressure chronic ulcer of other part of left foot with fat layer exposed; I25.10 Atherosclerotic heart disease of native coronary artery without angina pectoris; T87.81 Dehiscence of amputation stump
CPT/HCPCS: 28820; 11042; 36200; 36415; 37221; 37226; 71045; 73620; 73630; 75716; 76000; 80048; 80053; 80202; 81001; 82962; 83605; 83735; 85007; 85025; 85347; 85651; 87040; 87070; 87205; 88305; 88307; 88311; 93005; 93041; 96365; 96366; 99152; 99153; 99284; C1725; C1760; C1769; C1876; C1894; J1335; J1644; J2405; J2704; J3370; Q9966

== ENCOUNTER 2017-07-25 08:33 | Emergency (ER) | payer MEDICARE, OTHER, MEDICAID, SELFPAY ==
[2017-07-25] VITALS (8 sets, daily range): BP systolic 89–110; BP diastolic 49–59; PULSE 112–150; RESP 28–42; TEMP 36.5–36.8; O2SAT 94–98; BMI 20.7
--- NOTE | 2017-07-25 08:35 | XR_ITS ---
XR chest portable HISTORY: Shortness of breath, high white blood cell count, abdominal pain ITS.REASON: dyspnea ORDERING PHYSICIAN: Adal Hull MD PATIENT AGE: 82 years COMPARISON: None available FINDINGS: There is a pneumoperitoneum with air underneath the right hemidiaphragm. The heart size is unremarkable and the lungs are clear aside from mild bibasilar atelectasis.. There is severe right-sided subacromial stenosis consistent with rotator cuff tear. IMPRESSION: Pneumoperitoneum with bibasilar atelectasis
[2017-07-25 08:50] LABS: Basophils # 0.3 K/mm3 (0-0.2); Basophils % 0.5 % (0.1-2.0); Eosinophils # 0.3 K/mm3 (0.0-0.4); Eosinophils % 0.6 % (0.1-12.0); Hematocrit 37.1 % (42.0-52.0); Hemoglobin 11.7 g/dL (14.1-18.0); Lymphocytes % 1.9 K/mm3 (10-50); Mean Corpuscular HGB Conc 31.6 g/dL (31.8-35.4); Mean Corpuscular Hemoglobin 28.8 pg (27.0-31.2); Mean Corpuscular Volume 91.2 fl (80-94); Mean Platelet Volume 8.4 fl (7.4-10.4); Monocytes # 0.9 K/mm3 (0.1-1.0); Monocytes % 1.9 % (1.7-9.3); Neutrophils # 46.4 K/mm3 (1.8-7.8); Red Blood Count 4.07 M/mm3 (4.60-6.20); Red Cell Distribution Width 14.3 % (11.5-17.5)
--- NOTE | 2017-07-25 08:53 | [facility]H.EDSOB ---
ED Disposition Clinical Impression: Atrial fibrillation with rapid ventricular response, NSTEMI (non-ST elevated myocardial infarction), Free intraperitoneal air, Lactic acidosis, Chronic atrial fibrillation, Peripheral arterial disease Hypotension Qualifiers: Hypotension type: other hypotension type Qualified Code(s): I95.89 - Other hypotension Leukocytosis Qualifiers: Leukocytosis type: unspecified Qualified Code(s): D72.829 - Elevated white blood cell count, unspecified Chronic renal failure Qualifiers: Chronic kidney disease stage: stage 2 (mild) Qualified Code(s): N18.2 - Chronic kidney disease, stage 2 (mild) Disposition: Xfer Short-Term Hosp Condition on Discharge: Critical Referrals: Lopez Goss MD [Primary Care Provider] - Forms: Transfer Record - ED Time of Disposition: 09:54 - Critical Care Critical Care Time: Yes Attestation: On , the high probability of a clinically significant, sudden or life threatening deterioration of the following system(s) required my full and direct attention, intervention and personal management. The time I documented below is in addition to time spent performing reported procedures but includes the following listed in this critical care notation. Total Critical Care Time: 60 Vital system(s) involved:: Metabolic Failure, Respiratory Failure, Shock (Septic) My critical care processes included: Assessment & monitoring of V/S, Initial and Re-exams, Data Review/Interpretation, Coordinating Care, Medication Orders and management, Documentation Medical Decision Making - Medical Records Medical records reviewed: Yes: I reviewed the patient's medical records. - Phill Inquiry Pt receiving controlled substance: No Vital Signs: 07/25/17 08:34 07/25/17 08:49 07/25/17 08:57 Temperature 97.7 F Temperature Source Oral Pulse Rate [Apical] 150 H 129 H 130 H Respiratory Rate 28 H 28 H 28 H Blood Pressure [Right Arm] 107/52 89/49 97/59 Blood Pressure Mean [Right Arm] 70 62 71 Blood Pressure Source [Right Arm] Automatic Cuff Automatic Cuff Automatic Cuff Blood Pressure Position [Right Arm] Sitting Sitting Sitting 02 Sat by Pulse Oximetry 95 98 97 Oxygen Delivery Method Nasal Cannula Nasal Cannula Nasal Cannula Oxygen Flow Rate (LPM) 2 2 07/25/17 09:02 07/25/17 10:13 Temperature 98.3 F Temperature Source Oral Pulse Rate [Apical] 131 H 120 H Respiratory Rate 28 H 38 H Blood Pressure [Right Arm] 110/59 89/59 Blood Pressure Mean [Right Arm] 76 69 Blood Pressure Source [Right Arm] Automatic Cuff Automatic Cuff Blood Pressure Position [Right Arm] Sitting Sitting 02 Sat by Pulse Oximetry 98 94 L Oxygen Delivery Method Nasal Cannula Nasal Cannula Oxygen Flow Rate (LPM) 2 2 - Lab Data Lab results reviewed: Yes: I reviewed the patient's lab results. Lab Results 07/25/17 08:35: WBC 48.7 H*, RBC 4.07 L, Hgb 11.7 L, Hct 37.1 L, MCV 91.2, MCH 28.8, MCHC 31.6 L, RDW 14.3, Plt Count 814 H, MPV 8.4, Neut % (Auto) 95.0 H, Lymph % (Auto) 1.9 L, [place] % (Auto) 1.9, Eos % (Auto) 0.6, Baso % (Auto) 0.5, Neut # (Auto) 46.4 H, Lymph # (Auto) 1.0, [place] # (Auto) 0.9, Eos # (Auto) 0.3, Baso # (Auto) 0.3 H, Total Counted 100, Neutrophils % (Manual) 95 H, Lymphocytes % (Manual) 4 L, Monocytes % (Manual) 1 L, Platelet Estimate Marked increase, Poikilocytosis 1+, Tear Drop Cells 1+, Michelle Cells 1+, Schistocytes 1+ 07/25/17 08:35: PT 15.1 H, INR 1.39 H, APTT 39.9 H 07/25/17 08:35: Sodium 137, Potassium 4.6, Chloride 102, Carbon Dioxide 18 L, Anion Gap 21.6 H, BUN 49 H, Creatinine 1.78 H, Estimated Creat Clear 29, Estimated GFR 37 L, Est GFR ( Amer) 45 L, Glucose 203 H, Calcium 9.4, Total Bilirubin 0.4, AST 55 H, ALT 22, Alkaline Phosphatase 145 H, CK-MB (CK-2) 16.2 H*, Troponin I 5.31 H, Total Protein 7.7, Albumin 2.2 L, Globulin 5.5 H, Albumin/Globulin Ratio 0.4 L 07/25/17 08:35: B-Natriuretic Peptide 1970 H 07/25/17 09:01: Lactic Acid 5.9 H Result diagrams: 07/25/17 08:35 07/25/17 08
[2017-07-25 08:58] LABS: INR 1.39 (0.9-1.1); Platelet Count 814 K/mm3 (142-424); Prothrombin Time 15.1 seconds (9.4-11.8)
[2017-07-25 09:00] LABS: White Blood Count 48.7 K/mm3 (4.8-10.8)
[2017-07-25 09:01] LABS: MANUAL DIFFERENTIAL MANUAL DIFFERENTIAL (MANUAL DIFF)
[2017-07-25 09:03] LABS: Activated Partial Thrombo Time 39.9 seconds (23.6-34.0)
--- NOTE | 2017-07-25 09:05 | PC.NURSE ---
critical labs called and results given to Dr. Hull and RN.
[2017-07-25 09:19] LABS: Anion Gap 21.6 mEq/L (5-15); Blood Urea Nitrogen 49 mg/dL (7-18); Carbon Dioxide 18 mmol/L (21.0-32.0); Chloride 102 mmol/L (98-107); Creatinine Clearance Estimated 29 mL/min (0-300); Creatinine,Serum 1.78 mg/dL (0.70-1.30); Estimated Glomerular Filt Rate 37 ml/min (>60); Potassium 4.6 mmoL/L (3.5-5.1); Sodium 137 mmol/L (136-145)
[2017-07-25 09:20] LABS: Alanine Aminotransferase 22 U/L (12-78); Albumin Level 2.2 gm/dL (3.4-5.0); Albumin/Globulin Ratio 0.4 (1.1-1.8); Alkaline Phosphatase 145 U/L (46-116); Aspartate Amino Transferase 55 U/L (15-37); Bilirubin,Total 0.4 mg/dL (0.2-1.0); Calcium 9.4 mg/dL (8.5-10.1); GFR (African American) 45 ML/MIN (>60); Globulin 5.5 gm/dl (1.3-3.2); Glucose 203 mg/dL (74-106); Total Protein,Serum 7.7 gm/dL (6.4-8.2)
[2017-07-25 09:21] LABS: Creatine Kinase MB 16.2 ng/ml (0.0-3.6); Troponin I 5.31 ng/ml (0.00-0.06)
--- NOTE | 2017-07-25 09:22 | PC.NURSE ---
critical lab results called from lab notified GRAZYNA FUENTES
[2017-07-25 09:23] LABS: Lymphocytes % 4 % (10-50); Monocytes % 1 % (2-9); Neutrophils % 95 % (42-76); Total Cells Counted 100
[2017-07-25 09:24] LABS: Platelet Estimate Marked Increase
--- NOTE | 2017-07-25 09:24 | PC.NURSE ---
SALAZAR Samuels at BS
--- NOTE | 2017-07-25 09:24 | PC.NURSE ---
GRAZYNA FUENTES speaking with Radiologist r/t chest xray
[2017-07-25 09:27] LABS: Poikilocytosis 1+
[2017-07-25 09:28] LABS: Schistocytes 1+; Tear Drop Cells 1+
--- NOTE | 2017-07-25 09:28 | CT_ITS ---
CT abdomen pelvis wo con CLINICAL INDICATION: Severe abdominal pain with elevated white blood cell count and pneumoperitoneum on radiograph ITS.REASON: abdominal pain with iv contrast ORDERING PHYSICIAN: Adal Hull MD PATIENT AGE: 82 years COMPARISON: None TECHNIQUE: Axial images obtained with sagittal and coronal reformats. All CT scans at the facility use one or more dose reduction, viz: automated exposure control; ma/kV adjustment per patient size (including targeted exams where dose is matched to indication; i.e. head); or iterative reconstruction technique. PROCEDURE: Oral Contrast: None IV Contrast: None . FINDINGS: There are atelectatic changes in both lower lobes with consolidation in the posterior hemithoraces bilaterally probably related to volume loss. Pneumoperitoneum noted. The liver, gallbladder, spleen, and adrenal glands are unremarkable. No obstructing renal or ureteral calculi. There is mild gaseous distention of the stomach. There is mild diffuse small bowel distention with thickening of the bowel loops in the pelvis. There are a few gas bubbles within the lower abdomen and pelvis some of which could be intravascular. There may also be some pneumatosis in the small bowel in the lower pelvis. These findings suggest mesenteric ischemia with perforation. There is diffuse colonic diverticulosis. There is a small amount fluid in the pelvis. No definite diverticulitis. IV contrast was not utilized as an IV could not be obtained in the CT suite.. No obvious abscess. There is mild dilatation of the infrarenal abdominal aorta at 2.8 cm. No acute bony anomalies evident. IMPRESSION: 1. Pneumoperitoneum. Mildly distended small bowel with thickened small bowel loops in the pelvis and suggestion of small bowel pneumatosis and possible vascular gas in the inferior mesenteric vein. Mesenteric ischemia with perforation is considered. 2. Bibasilar atelectasis. 3. Sigmoid diverticulosis. 4. Mild fusiform dilatation of the infrarenal abdominal aorta at 2.8 cm
[2017-07-25 09:29] LABS: Burr Cells 1+
--- NOTE | 2017-07-25 09:32 | PC.NURSE ---
GRAZYNA FUENTES spoke with Dr. Gallagher, surgeon special distribution clerk.
--- NOTE | 2017-07-25 09:39 | HMH.PHACONS ---
- Pharmacy Consult Date: 07/25/17 Time: 09:39 Referring provider: DR. ROSAS Reason for Consult:: VANCOMYCIN DOSING Allergies and ADEs:: Allergies Allergy/AdvReac Type Severity Reaction Status Date / Time No Known Drug Allergies Allergy Unknown -- Verified 07/25/17 08:59 [NKDA] Home Medications:: Home Medications Medication Instructions Recorded Confirmed Type atorvastatin 40 mg tablet 40 mg PO HS 30 Days #30 tab 05/18/17 05/30/17 History clopidogrel 75 mg tablet 75 mg PO HS 30 Days #30 tab 05/18/17 05/31/17 History diltiazem CD 240 mg 240 mg PO DAILY 30 Days #30 05/18/17 05/30/17 History capsule,extended release 24 hr insulin glargine (U-100) 100 36 units SUB-Q HS 8 Days #3 05/18/17 05/30/17 History unit/mL (3 mL) subcutaneous pen insulin lispro (U-100) 100 unit/mL 0 units SUB-Q BID 15 Days #3 05/18/17 05/30/17 History subcutaneous pen metoprolol succinate ER 25 mg 25 mg PO DAILY 30 Days #30 05/18/17 05/30/17 History tablet,extended release 24 hr rivaroxaban 15 mg tablet 15 mg PO HS 30 Days #30 tab 05/18/17 05/30/17 History sitagliptin 50 mg-metformin ER 1 tab PO DAILY 30 Days #30 05/18/17 05/30/17 History 1,000 mg tablet,extended release 24h mp Acetaminophen [Tylenol Extra 1,000 mg PO Q6HP PRN 05/30/17 05/30/17 History Strength] Ascorbic Acid [Vitamin C 500mg 500 mg PO BID 05/30/17 05/30/17 History tablet] Aspirin [Adult Low Dose Aspirin EC] 81 mg PO DAILY 05/30/17 05/30/17 History Ertapenem Sodium [Invanz 1gm ADV] 1 gm IM DAILY 05/30/17 05/31/17 History Sennosides [Senna] 15 mg PO HS 05/30/17 05/30/17 History Zinc Sulfate [Zinc Sulfate 220mg 220 mg PO HS 05/30/17 05/30/17 History capsule] risperiDONE [Risperidone] 0.25 mg PO BID 01/29/18 01/29/18 History Height: 1.75 m Weight: 63.503 kg Laboratory Results:: Laboratory Results - last 24 hr 07/25/17 08:35: WBC 48.7 H*, RBC 4.07 L, Hgb 11.7 L, Hct 37.1 L, MCV 91.2, MCH 28.8, MCHC 31.6 L, RDW 14.3, Plt Count 814 H, MPV 8.4, Neut % (Auto) 95.0 H, Lymph % (Auto) 1.9 L, [place] % (Auto) 1.9, Eos % (Auto) 0.6, Baso % (Auto) 0.5, Neut # (Auto) 46.4 H, Lymph # (Auto) 1.0, [place] # (Auto) 0.9, Eos # (Auto) 0.3, Baso # (Auto) 0.3 H, Total Counted 100, Neutrophils % (Manual) 95 H, Lymphocytes % (Manual) 4 L, Monocytes % (Manual) 1 L, Platelet Estimate Marked increase, Poikilocytosis 1+, Tear Drop Cells 1+, Michelle Cells 1+, Schistocytes 1+ 07/25/17 08:35: PT 15.1 H, INR 1.39 H, APTT 39.9 H 07/25/17 08:35: Sodium 137, Potassium 4.6, Chloride 102, Carbon Dioxide 18 L, Anion Gap 21.6 H, BUN 49 H, Creatinine 1.78 H, Estimated Creat Clear 29, Estimated GFR 37 L, Est GFR ( Amer) 45 L, Glucose 203 H, Calcium 9.4, Total Bilirubin 0.4, AST 55 H, ALT 22, Alkaline Phosphatase 145 H, CK-MB (CK-2) 16.2 H*, Troponin I 5.31 H, Total Protein 7.7, Albumin 2.2 L, Globulin 5.5 H, Albumin/Globulin Ratio 0.4 L 07/25/17 08:35: B-Natriuretic Peptide 1970 H Medical History: Reports:: Atrial Fibrillation, Deep Vein Thrombosis, Dementia, Diabetes Mellitus Type 2, Hyperlipidemia, Hypertension, Peripheral Artery Disease, Transient Ischemic Attacks (TIA) Assessment and Plan - Assessment and plan all Dx Assessment and Plan for all problems:: BASED ON PATIENT'S FACTORS, RECOMMEND STARTING WITH VANCOMYCIN 1 GM X1 DOSE NOW AND FOLLOW UP WITH VANCOMYCIN 1250 MG Q36H STARTING AT 0900 ON 3/27/18. PHARMACY WILL FOLLOW DAILY AND ADJUST APPROPRIATE. RICO MENDOZA, PHARMD
--- NOTE | 2017-07-25 09:40 | PC.NURSE ---
Son at , GRAZYNA FUENTES spoke with son at this time.
--- NOTE | 2017-07-25 09:44 | PC.NURSE ---
attempting to contact Dr. Goss per ER MD request, on hold at this time.
[2017-07-25 09:47] LABS: Lactic Acid 5.9 mmol/L (0.4-2.0)
--- NOTE | 2017-07-25 09:47 | PC.NURSE ---
Pt to CT, ER nurse accompaning pt.
--- NOTE | 2017-07-25 09:50 | PC.NURSE ---
GRAZYNA FUENTES contacting [facility] about transferring pt.
--- NOTE | 2017-07-25 09:52 | PC.NURSE ---
GRAZYNA FUENTES notified of critical lactic acid result.
[2017-07-25 09:53] LABS: Reflex Lactic Add Lactic Reflex
--- NOTE | 2017-07-25 09:55 | PC.NURSE ---
Waiting television production technician back from GRAZYNA Pittman MD stated he spoke with Kassidy who stated she will call back after speaking with the design transferrer and the blue surgery team.
--- NOTE | 2017-07-25 10:08 | PC.NURSE ---
Pt return from CT at this time.
--- NOTE | 2017-07-25 10:13 | PC.NURSE ---
GRAZYNA FUENTES spoke with Dr. Anthony at , accepted pt in transfer to ER.
--- NOTE | 2017-07-25 10:24 | PC.NURSE ---
Report called YELITZA Herzog at ER
[2017-07-25 10:37] LABS: ABG Base Excess -9.9 mmol/L (-2.4-2.3); ABG Oxygen Saturation 95 % (90-100); ABG PCO2 24.9 mmhg (35.0-45.0); ABG PO2 77.6 mmhg (80-100); ABG TCO2 15.7 mmhg (23-27)
[2017-07-25 10:38] LABS: Allen's Test Acceptable; Oxygen 4 liters %; Source Right Radial
--- NOTE | 2017-07-25 11:05 | PC.NURSE ---
contacted zeinabRN at ER to give updated report on pt, r/t pt is now on a levophed drip.
[2017-07-27 09:34] LABS: Peripheral Smear Review Scanned Result
== END 2017-07-25 11:05 | disposition short-term general hospital (02) ==
PROVIDERS: Emergency Provider Emergency Medicine; PCP Family Medicine
DX: I21.4 Non-ST elevation (NSTEMI) myocardial infarction (principal); I48.2 Chronic atrial fibrillation; K66.8 Other specified disorders of peritoneum; I95.89 Other hypotension; A41.9 Sepsis, unspecified organism; R65.21 Severe sepsis with septic shock
CPT/HCPCS: 71045; 74176; 80053; 82553; 82803; 83605; 83880; 84484; 85007; 85025; 85610; 85730; 87040; 93005; 96365; 96366; 96367; 96375; 99285